=== PATIENT | female | born 1940 | race Caucasian/White ===

== ENCOUNTER 2018-07-15 06:19 | Observation (INO) | payer MEDICARE ==
[2018-07-15] MEDS ORDERED: Adenosine 6 MG/2 ML VIAL ONE ×2 (06:31→06:33)
[2018-07-15] MEDS ORDERED: Fentanyl 100 MCG/2 ML VIAL ONE (06:31)
[2018-07-15 06:52] LABS: #Eosinphils 0.1 thou/uL (0.0-0.7); #Lymphocytes 2.1 thou/uL (1.20-3.40); #Monocytes 0.6 thou/uL (0.11-0.59); #Neutrophils 3.5 thou/uL (1.40-6.50); %Basophils 0.6 % (0.0-1.0); %Eosinophils 1.2 % (0.0-10.0); %Lymphocytes 33.1 % (21.0-51.0); %Monocytes 9.1 % (0.0-10.0); Hemoglobin 13.2 g/dL (12.0-16.0); Mean Corpuscular HGB CONC 33.5 g/dL (32.0-36.0); Mean Corpuscular Hemoglobin 31.3 pg (27.0-31.0); Mean Corpuscular Volume 93.4 fL (78.0-98.0); Mean Platelet Volume 8.5 fL (7.4-10.4); Platelet Count 167 thou/uL (130-400); RBC Distribution Width 13.3 % (11.5-14.5); Red Blood Cell (RBC) Count 4.23 mill/uL (4.20-5.40); White Blood Cell (WBC) Count 6.2 thou/uL (4.8-10.8)
[2018-07-15 07:13] LABS: CKMB 1.1 ng/mL (0-6.6); Troponin I Less than 0.010 ng/mL (< 0.028)
[2018-07-15 07:17] LABS: ALT (SGPT) 32 U/L (8-55); AST (SGOT) 25 U/L (5-34); Albumin 4.5 g/dL (3.4-4.8); Alkaline Phosphatase 62 U/L (40-150); Anion Gap 12 mmol/L (10-20); BUN (Urea Nitrogen) 14 mg/dL (9.8-20.1); Bilirubin, Total 0.7 mg/dL (0.2-1.2); Calc. Creatinine Clearance 0 mL/min (70-130); Calcium 9.7 mg/dL (7.8-10.44); Carbon Dioxide 26 mmol/L (23-31); Chloride 109 mmol/L (98-107); Estimated GFR-MDRD 67; Globulin 2.5 g/dL (2.4-3.5); Glucose 92 mg/dL (83-110); Potassium 3.8 mmol/L (3.5-5.1); Sodium 143 mmol/L (136-145)
[2018-07-15] MEDS ORDERED: Ondansetron HCl/PF 4 MG/2 ML Vial ONE (07:22)
--- NOTE | 2018-07-15 08:17 | RAD ---
SINGLE VIEW OF THE CHEST: COMPARISON: None. HISTORY: Supraventricular tachycardia. FINDINGS: A single view of the chest shows an enlarged cardiomediastinal silhouette with atherosclerotic calcif ications in the aorta. There is no evidence of consolidation, mass, or pleural effusion. IMPRESSION: Cardiomegaly. POS: GAETANO
[2018-07-15] MEDS ORDERED: Digoxin 0.5 MG/2 ML AMP ONE (08:55)
[2018-07-15 09:55] LABS: Troponin I 0.017 ng/mL (< 0.028)
[2018-07-15] MEDS ORDERED: Loperamide HCl 2 MG CAP PO PRN (10:58)
[2018-07-15] MEDS ORDERED: HYDROcodone/Acetaminophen 5/325 mg Tablet PO PRN (10:58)
[2018-07-15] MEDS ORDERED: Metoprolol Tartrate 25 MG TAB PO SCH ×2 (10:58→11:30)
[2018-07-15] MEDS ORDERED: Eucerin (Mineral Oil/Petrolatum,White) 30 gm Jar TOP PRN (10:58)
[2018-07-15] MEDS ORDERED: Chloraseptic Spray 180 ml Bottle PO PRN (10:58)
[2018-07-15] MEDS ORDERED: Nitroglycerin 0.4 MG TAB (25 Tab Bottle) SL PRN (10:58)
[2018-07-15] MEDS ORDERED: Diabetic Tussin 200 MG/10 ML UDCUP PO PRN (10:58)
[2018-07-15] MEDS ORDERED: Milk Of Magnesia 30 ML UDCUP PO PRN (10:58)
[2018-07-15] MEDS ORDERED: Ondansetron ODT 4 MG TAB PO PRN (10:58)
[2018-07-15] MEDS ORDERED: Sodium Chloride 0.65% Nasal 44 ML BOT EA NARE PRN (10:58)
[2018-07-15] MEDS ORDERED: Senokot 8.6 MG TAB PO PRN (10:58)
[2018-07-15] MEDS ORDERED: Artificial Tears 18 DROP/0.9 ML EA EYE PRN (10:58)
[2018-07-15] MEDS ORDERED: Loratadine 10 MG TAB PO PRN (10:58)
[2018-07-15] MEDS ORDERED: Famotidine 20 MG TAB PO SCH ×2 (10:58→11:30)
[2018-07-15] MEDS ORDERED: Enoxaparin Sodium 40 MG/0.4 ML SYRINGE SC SCH (10:58)
[2018-07-15] MEDS ORDERED: Mag-Al 1200 mg/1200 mg/30 ML UDCUP PO PRN (10:58)
[2018-07-15] MEDS ORDERED: Aspirin 325 MG TAB PO SCH ×2 (10:58→11:30)
[2018-07-15] MEDS ORDERED: hydrALAZINE 20 MG/ML VIAL SLOW IVP PRN (10:58)
[2018-07-15] MEDS ORDERED: Ondansetron HCl/PF 4 MG/2 ML Vial IVP PRN (10:58)
[2018-07-15] MEDS ORDERED: Acetaminophen 325 MG TAB PO PRN (10:58)
[2018-07-15] MEDS ORDERED: Zolpidem Tartrate 5 MG TAB PO PRN (10:58)
--- NOTE | 2018-07-15 11:34 | HP ---
PRIMARY CARE PHYSICIAN: [facility] call admission. REASON FOR ADMISSION: Supraventricular tachycardia. HISTORY OF PRESENT ILLNESS: This is a 77-year-old female with no significant medical history, who ca me to emergency room with a complaint of dizziness and palpitations. She was feeling funny. She had EKG done, which showed SVT. She was given 6 mg of adenosine that did not convert her to sinus rhyth m. Patient required DC cardioversion in the emergency room after conscious sedation. The patient wa s given DC shock and she was converted to sinus rhythm. After that, patient also had transient SVT a gain, which converted back to normal rhythm. Patient was given aspirin, digoxin 0.25 mg IV push, and additional dose of adenosine 12 mg prior to that. When I saw, at that time, patient was in sinus rhythm. She was feeling much, much better. She did n ot have any chest pain or syncope. She denies any fever or chills. She denies any similar problem i n the past. She denies any excessive caffeinated product. She denies any orthopnea, PND, or leg swe lling. She denies any thyroid problem. The patient is not taking any medications. REVIEW OF SYSTEMS: The following complete review of systems was negative, unless otherwise mentioned in the HPI or below: Constitutional: Weight loss or gain, ability to conduct usual activities. Sk in: Rash, itching. Eyes: Double vision, pain. ENT/Mouth: Nose bleeding, neck stiffness, pain, te nderness. Cardiovascular: Palpitations, dyspnea on exertion, orthopnea. Respiratory: Shortness of breath, wheezing, cough, hemoptysis, fever, or night sweats. Gastrointestinal: Poor appetite, abdo edwin pain, heartburn, nausea, vomiting, constipation, or diarrhea. Genitourinary: Urgency, frequen cy, dysuria, nocturia. Musculoskeletal: Pain, swelling. Neurologic/Psychiatric: Anxiety, depressi on. Allergy/Immunologic: Skin rash, bleeding tendency. Please see my HPI for pertinent positive an d negative. All other review of systems reviewed and negative except as mentioned in the HPI. PAST MEDICAL HISTORY: Per patient, she does not have any previous medical history. PAST SURGICAL HISTORY: Per patient, she did not have any surgery in the past. PAST PSYCHIATRIC HISTORY: Reviewed and negative. SOCIAL HISTORY: Patient is . She is a former smoker. She quit smoking few years ago. She d enies any alcohol or other illicit drug abuse. FAMILY HISTORY: No strong family history of premature coronary artery disease, stroke, or cancer. ALLERGIES: No known drug allergies. CURRENT HOME MEDICATIONS: The patient is not taking any medication at this point. EMERGENCY ROOM COURSE: The patient was given initially adenosine 6 mg and subsequently 12 mg. The p atient was given IV fluid. Patient was given conscious sedation with fentanyl 50 mcg, etomidate 7 mg , Zofran 4 mg, and subsequently, patient was also given additional dose of digoxin 0.25 mg. PHYSICAL EXAMINATION: VITAL SIGNS: On arrival, blood pressure of 121/86, pulse 171, respiratory rate 24, temperature 98.5, saturation 100% on room air, weight 61.2 kilograms. GENERAL: The patient is currently alert and oriented x3. HEENT: Head: Normocephalic and atraumatic. Eyes: Pupils round and reactive to light. Extraocular muscle intact. ENT: Oropharynx within normal limits. Moist mucous membranes, no oral lesion, no p haryngeal erythema, no exudate. NECK: Supple, no JVD, no thyromegaly, no carotid bruit. LUNGS: Clear to auscultation without any rhonchi or rales. CARDIAC: S1 and S2 regular. No murmur, no gallop, no rub. ABDOMEN: Soft, bowel sounds present, nontender, nondistended. No organomegaly, no mass, no suprapub ic tenderness. BACK EXAMINATION: Unremarkable, no CVA tenderness. EXTREMITIES: Upper extremities, passive movement of all joints are normal. Lower extremities, no ed leti. Good distal pulsation. SKIN: No skin rash. HEMATOLOGICAL SYSTEM: No lymphadenopathy. PSYCHIATRIC: Normal affect. NEUROLOGIC: The patient is alert and oriented x3. Cranial nerves II-XII intact. Motor and sensatio n within normal limits. No focal neurological deficit noted. SIGNIFICANT LABORATORY DATA: 1. EKG showing a supraventricular tachycardia with fusion complex. Repeat EKG shows normal sinus rh ythm, premature atrial complexes. 2. Chest x-ray, based on my review, no acute cardiopulmonary process. 3. CBC: WBC 6.2, hemoglobin 13.2, platelets 167. 4. BMP: Sodium 143, potassium 3.8, chloride 109, carbon dioxide 26, BUN 14, creatinine 0.82, glucos e 92, calcium 9.7. 5. LFT: AST 25, ALT 32, alkaline phosphatase 62, albumin 4.5. 6. Cardiac enzymes negative x2. 7. TSH 3.43. ASSESSMENT AND PLAN: 1. Acute supraventricular tachycardia. Patient required adenosine 6 mg and subsequently 12 mg and s till this has not responded and that is why it required direct current cardioversion. Even after piyush t, the patient had another supraventricular tachycardia, required digoxin. Currently, patient is in sinus rhythm. At this point, the patient will be admitted to telemetry floor. Electrophysiology cale l be consulted. Echocardiography will be obtained. We will continue aspirin 325 mg p.o. daily. We will check lipid profile for risk stratification. Tomorrow, we will monitor on telemetry floor. We will do serial cardiac enzymes x2 to rule out acute coronary syndrome. Further evaluation and treatm ent, we will defer to fugitive investigator. We will start metoprolol 25 mg p.o. b.i.d. 2. Deep venous thrombosis prophylaxis not needed, because we are expecting discharge in 24 hours. 3. Gastrointestinal prophylaxis, Pepcid 20 mg p.o. b.i.d. 4. Code status: The patient is FULL CODE. Patient's is surrogate decision maker. Disposition plan based on clinical course. We are expecting patient's stay in hospital [address] of care discussed with the patient in detail.
[2018-07-15 12:08] VITALS: BMI 23.6
[2018-07-15] MEDS ORDERED: Iopamidol 370 76% 100 ML VIAL ONE (12:42)
[2018-07-15 13:31] LABS: Bilirubin Negative (Negative); Blood, Urine Negative (Negative); Clarity CLEAR (Clear); Glucose, Urine (Dipstick) Negative (Negative); Leukocyte Negative (Negative); Nitrite Negative (Negative); Protein, Urine (Dipstick) Negative (Neg-Trace); Specific Gravity, Urine 1.005 (1.002-1.036); Urobilinogen 0.2 mg/dL (0.2-1.0)
[2018-07-15 13:33] LABS: Bacteria/HPF None Seen HPF (None Seen); Hyaline Casts/LPF 0-3 HYALINE CAST LPF (0-3 Hyaline); Pathc Cast-AUWi Flag 0.14 (0-2.49); RBC/HPF 0-3 HPF (0-3); Squamous Epithelial 0-3 HPF (0-3); WBC/HPF 0-3 HPF (0-3)
[2018-07-15 13:58] LABS: Troponin I 0.012 ng/mL (< 0.028)
[2018-07-15] MEDS ORDERED: Sodium Chloride 0.9% 1,000 ML IV SCH (17:00)
[2018-07-15] MEDS: Famotidine 20 MG TAB PO SCH (19:51)
[2018-07-15] MEDS: Metoprolol Tartrate 25 MG TAB PO SCH (19:51)
[2018-07-15] MEDS: Lorazepam 2 MG/ML VIAL SLOW IVP PRN (21:39)
--- NOTE | 2018-07-16 00:06 | CON ---
DATE OF CONSULTATION: 07/15/2018 ELECTROPHYSIOLOGY CONSULTATION SURINDER Odom dictating for Pelon Jansen M.D. REFERRING PHYSICIAN: Dr. Palma. REASON FOR CONSULTATION: Supraventricular tachycardia. HISTORY OF PRESENT ILLNESS: Ms. Santana is a pleasant elderly woman, in the early stages of demen tia. She is accompanied by her . Her largely acts as a historian. They report that they were at home and Ms. Santana had a sudden onset of shortness of breath. She also had some di zziness and palpitations. They came to the emergency room, and when connected to a telemetry, it mandi wed SVT. She was given 6 mg of adenosine, which was ineffective at restoring a sinus mechanism and t hen was sedated and underwent direct current cardioversion in the emergency room. After one shock, s inus rhythm was restored. She did have a transient episode of SVT following that, which converted ba ck to normal sinus rhythm after receiving digoxin IV and additional 12 mg dose of adenosine. Since t hat time, she has been maintained in sinus rhythm and has not had recurrence of her symptoms. Her an d her both deny any prior episodes of this or any substantial past medical history. They are both very eager for further investigation and hopefully resolution of this issue. They deny any rec ent illnesses, hospitalizations, medication changes, excessive caffeine intake, or thyroid issues. REVIEW OF SYSTEMS: A 12-point review of systems was conducted and is negative except that listed abo ve in the HPI. PAST MEDICAL HISTORY: No prior past medical history per patient and . HOME MEDICATIONS: No home medications. ALLERGIES: No known drug allergies. FAMILY HISTORY: Negative for sudden onset cardiac , stroke, or early onset coronary artery dise ase. SOCIAL HISTORY: , former tobacco habituation, but quit few years ago. Negative for alcohol o r illicit drug use. PHYSICAL EXAMINATION: MOST RECENT VITAL SIGNS: Temperature 98.3 degrees Fahrenheit, pulse 88, blood pressure 154/67, respi rations 17, oxygen is 95% on room air. GENERAL: This is a well-appearing, well-groomed female in no apparent distress. She is alert times person, place, and mostly to situation, though is not completely accurate historian and she does have some confusion about the events leading up to the hospital. HEENT: She is normocephalic and atraumatic. Her sclerae are anicteric. EOMs are intact. NECK: Supple without jugular venous distention. HEART: Rate is regularly regular with a crisp S1 and S2. PMI is nondisplaced. EXTREMITIES: Warm and dry to touch without clubbing, cyanosis, or edema. LUNGS: Clear to auscultation bilaterally without wheezes, crackles, or rhonchi. Respirations are ev en and unlabored with good bilateral excursion. ABDOMINAL EXAM: Benign and hepatojugular reflex is negative. NEUROLOGIC EXAM: Grossly intact and nonfocal, but as mentioned, she is a poor historian and somewhat confused about recent events, which is consistent with her early stages of dementia. Her gait was s table, moving around the room. DATABASE: Hematology was unremarkable. Chemistry, creatinine 0.82, potassium 3.8. TSH 3.43. Echoc ardiogram on 07/15/2018, ejection fraction 55%-60%, moderately enlarged right atrium, mild mitral reg urgitation. Telemetry and EKGs all were reviewed. 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 ASSESSMENT AND PLAN: 1. Supraventricular tachycardia, likely atrioventricular uma reentry tachycardia, now maintaining sinus rhythm after discontinue cardioversion this morning. 2. Preserved left ventricular systolic function 55%-60% by echocardiogram on 07/15/2018. 3. Potential mild dementia. RECOMMENDATIONS: We discussed SVT with Ms. Santana and her . At this point, the recommend ation is to move forward with EP study and SVT ablation tomorrow. We will keep her n.p.o. after midn ight. Risks included with EP study and ablation include hematoma at the access site, damage to the v eins, damage to the heart, arrhythmias, perforation of the heart, and possible need for chest tube in sertion. The patient voices understanding and her voices understanding. They both agree wit h the plan of care and are eager to move forward for resolution of this issue. Thank you for allowing us to participate in the care of this patient. We will continue to follow and see her tomorrow for her study and ablation.
[2018-07-16] MEDS: Lorazepam 2 MG/ML VIAL SLOW IVP PRN (02:10)
[2018-07-16 04:56] LABS: #Eosinphils 0.2 thou/uL (0.0-0.7); #Lymphocytes 2.1 thou/uL (1.20-3.40); #Monocytes 0.4 thou/uL (0.11-0.59); #Neutrophils 3.3 thou/uL (1.40-6.50); %Basophils 0.7 % (0.0-1.0); %Lymphocytes 34.2 % (21.0-51.0); Hemoglobin 11.2 g/dL (12.0-16.0); Mean Corpuscular HGB CONC 34.4 g/dL (32.0-36.0); Mean Corpuscular Hemoglobin 32.1 pg (27.0-31.0); Mean Corpuscular Volume 93.5 fL (78.0-98.0); Platelet Count 133 thou/uL (130-400)
[2018-07-16 05:17] LABS: Anion Gap 12 mmol/L (10-20); BUN (Urea Nitrogen) 9 mg/dL (9.8-20.1); Calc. Creatinine Clearance 62 mL/min (70-130); Calcium 8.9 mg/dL (7.8-10.44); Carbon Dioxide 22 mmol/L (23-31); Cardiac Risk 2.3 (Less than 4.5); Chloride 111 mmol/L (98-107); Cholesterol 166 mg/dl (< 200 Desired); Estimated GFR-MDRD 77; Glucose 95 mg/dL (83-110); HDL Cholesterol 72 mg/dL (>60 Neg Risk); LDL Cholesterol, Calculated 81 mg/dL; Potassium 3.5 mmol/L (3.5-5.1); Sodium 141 mmol/L (136-145); Triglycerides 65 mg/dL (Less than 150)
[2018-07-16] MEDS ORDERED: PROPOFOL 200 MG/20 ML VIAL ONE (10:03)
[2018-07-16] MEDS: Aspirin 325 MG TAB PO SCH (10:18)
[2018-07-16] MEDS: Famotidine 20 MG TAB PO SCH ×2 (10:19→20:42)
[2018-07-16] MEDS: Metoprolol Tartrate 25 MG TAB PO SCH ×2 (10:19→21:52)
--- NOTE | 2018-07-16 11:54 | DIS ---
DATE OF ADMISSION: 07/15/2018 DATE OF DISCHARGE: 07/16/2018 PRIMARY CARE PHYSICIAN: [facility] call admission. DISCHARGE DISPOSITION: Home. PRIMARY DISCHARGE DIAGNOSIS: Supraventricular tachycardia. SECONDARY DISCHARGE DIAGNOSES: Normocytic-normochromic anemia and Alzheimer's dementia. PRIMARY PROCEDURE/OPERATION: SVT ablation. RADIOLOGICAL INVESTIGATION: Echocardiography showed normal EF, diastolic dysfunction. Chest x-ray n ormal. SIGNIFICANT LABORATORY DATA: WBC 6.0, hemoglobin 11.2, platelets 133. Sodium 141, potassium 3.5, BU N 9, creatinine 0.73, calcium 8.9, magnesium 2.0. LFT normal. Cardiac enzymes negative x3. LDL 81. TSH 3.43. Triglycerides 65, total cholesterol 166, HDL 72. Urinalysis normal. DISCHARGE MEDICATIONS: Namenda 10 mg p.o. daily, metoprolol 25 mg p.o. b.i.d., aspirin 81 mg p.o. da nancy. CONTRAINDICATIONS: None. CODE STATUS: FULL CODE. INPATIENT CONSULTANTS: Dr. Jansen, eye dropper assembler, was consulted while in hospital, who did elect rophysiologic study. TEST RESULTS PENDING ON DISCHARGE: None. ALLERGIES: No known drug allergy. DISCHARGE PLAN: Post hospital, the patient will follow up with Dr. Jansen as instructed. The patient will make appointment with primary care physician. HOSPITAL COURSE: This is a 77-year-old female, who was admitted for acute SVT. In the emergency buddy m, patient was given adenosine 6 mg and subsequently required 12 mg of adenosine. Even after that, t he patient remained in SVT, required DC cardioversion. Subsequently, she converted to sinus rhythm, but she had momentarily recurrence of SVT and that is why she was given digoxin in the emergency room and she was admitted to telemetry floor as observation status. Flight Control Manager was consulted an d they decided to do ablation procedure for SVT. Echocardiography showed diastolic dysfunction. Her chest x-ray was normal. Her routine blood test while in hospital was unremarkable including cardiac enzyme that is negative. The patient was planned for electrophysiologic study by Dr. Jansen later on today, and if that procedure is done and if eye dropper assembler okay, then we will consider dischargi ng this patient to home. During night time, while in hospital, the patient had sundowning and she required restraint and sitte r, but this morning, the patient was calm and she was no longer requiring any restraint. PHYSICAL EXAMINATION: The patient is seen and examined at bedside today. VITAL SIGNS: Currently, temperature 97.5, pulse 66, respiratory rate 16, saturation 94% on room air, blood pressure 157/72, weight 134 pounds. GENERAL: The patient is currently alert, awake, in no obvious acute distress. HEAD: Normocephalic, atraumatic. EYES: Pupils round, reactive to light. Extraocular muscle intact. ENT: Oropharynx within normal limits. Moist mucous membranes, no oral lesion, no pharyngeal erythem a, no exudate. NECK: Supple, no JVD, no thyromegaly, no carotid bruit. No jugular venous distention. LUNGS: Clear to auscultation without any rhonchi or rales. CARDIAC: S1 and S2 regular without any murmur. ABDOMEN: Soft and benign without any tenderness. EXTREMITIES: No edema. NEUROLOGIC: Nonfocal examination. Overall, patient is medically stable for discharge today.
--- NOTE | 2018-07-16 11:57 | PDOC.PN ---
- Subjective Encounter Start Date: 07/16/18 Encounter Start Time: 07:50 -: old records requested/rev Patient seen and examined. No new complaints. pt was agitated last night - Objective Resuscitation Status: Resuscitation Status FULL:Full Resuscitation MAR Reviewed: Yes Vital Signs & Weight: Vital Signs (12 hours) Temp Pulse Resp BP Pulse Ox 07/16/18 04:40 97.5 F L 66 16 157/72 H 94 L Weight Weight 134 lb 12.8 oz I&O: 07/15/18 07/16/18 07/17/18 06:59 06:59 06:59 Intake Total 100 Output Total 900 Balance -800 Result Diagrams: 07/16/18 04:44 07/16/18 04:44 Radiology Reviewed by me: Yes (echo reviewed) EKG Reviewed by me: Yes Phys Exam - Physical Examination Constitutional: NAD HEENT: PERRLA, moist MMs, sclera anicteric Neck: no JVD, supple Respiratory: no wheezing, no rales, no rhonchi Cardiovascular: RRR, no significant murmur, no rub Gastrointestinal: soft, non-tender, no distention, positive bowel sounds Musculoskeletal: no edema, pulses present Neurological: non-focal, normal sensation Lymphatic: no nodes Psychiatric: normal affect Skin: no rash, normal turgor Dx/Plan (1) SVT (supraventricular tachycardia) Code(s): I47.1 - SUPRAVENTRICULAR TACHYCARDIA Status: Acute (2) Alzheimer's dementia Code(s): G30.9 - ALZHEIMER'S DISEASE, UNSPECIFIED; F02.80 - DEMENTIA IN OTH DISEASES CLASSD ELSWHR W/O BEHAVRL DISTURB Status: Chronic (3) Anemia, normocytic normochromic Code(s): D64.9 - ANEMIA, UNSPECIFIED Status: Chronic - Plan cont current plan of care * today plan for SVT ablation procedure * after that if stable and if EP OK, will discharge to home * medication reviewed as below * symptomatic treatment. Review of Systems - Review of Systems Eyes: negative: Pain, Vision Change, Conjunctivae Inflammation, Eyelid Inflammation, Redness, Other ENT: negative: Ear Pain, Ear Discharge, Nose Pain, Nose Discharge, Nose Congestion, Mouth Pain, Mouth Swelling, Throat Pain, Throat Swelling, Other Respiratory: negative: Cough, Dry, Shortness of Breath, Hemoptysis, SOB with Excertion, Pleuritic Pain, Sputum, Wheezing Cardiovascular: negative: chest pain, palpitations, orthopnea, paroxysmal nocturnal dyspnea, edema, light headedness, other Gastrointestinal: negative: Nausea, Vomiting, Abdominal Pain, Diarrhea, Constipation, Melena, Hematochezia, Other Genitourinary: negative: Dysuria, Frequency, Incontinence, Hematuria, Retention , Other Musculoskeletal: negative: Neck Pain, Shoulder Pain, Arm Pain, Back Pain, Hand Pain, Leg Pain, Foot Pain, Other Other: not reliable due to dementia - Medications/Allergies Allergies/Adverse Reactions: Allergies Allergy/AdvReac Type Severity Reaction Status Date / Time No Known Allergies Allergy Verified 07/15/18 11:12 Medications: Current Medications Acetaminophen (Tylenol) 650 mg PO Q4H PRN PRN Reason: Headache/Fever or Pain Al Hydroxide/Mg Hydroxide (Maalox) 30 ml PO Q6H PRN PRN Reason: Heartburn or Indigestion Artificial Tears (Tears Naturale) 0 drop EA EYE PRN PRN PRN Reason: Dry Eyes Aspirin (Aspirin) 325 mg PO DAILY [facility] Last Admin: 07/16/18 10:18 Dose: 325 mg Famotidine (Pepcid) 20 mg PO BID [facility] Last Admin: 07/16/18 10:19 Dose: 20 mg Guaifenesin (Robitussin Sf) 200 mg PO Q4H PRN PRN Reason: Cough Hydralazine HCl (Apresoline) 10 mg SLOW IVP Q4H PRN PRN Reason: Systolic BP > 180 Loperamide HCl (Imodium) 2 mg PO PRN PRN PRN Reason: Diarrhea/Loose Stools Loratadine (Claritin) 10 mg PO DAILYPRN PRN PRN Reason: Sinus Symptoms Magnesium Hydroxide (Milk Of Magnesium) 30 ml PO DAILYPRN PRN PRN Reason: Constipation Metoprolol Tartrate (Lopressor) 25 mg PO BID [facility] Last Admin: 07/16/18 10:19 Dose: 25 mg Mineral Oil/White Petrolatum (Eucerin Cream) 0 gm TOP BIDPRN PRN PRN Reason: Dry Skin Nitroglycerin (Nitrostat) 0.4 mg SL Q5MIN PRN PRN Reason: Chest Pain Ondansetron HCl (Zofran Odt) 4 mg PO Q6H PRN PRN Reason: Nausea/Vomiting Ondansetron HCl (Zofran) 4 mg IVP Q6H PRN PRN Reason: Nausea/Vomiting Phenol (Chloraseptic [place] 180 Ml Bot) 0 ml PO PRN PRN PRN Reason: Sore Throat Senna (Senokot) 2 tab PO HSPRN PRN PRN Reason: Constipation Sodium Chloride (Hollins Nasal [place] 0.65%) 0 ml EA NARE QIDPRN PRN PRN Reason: Nasal Congestion
[2018-07-16] MEDS ORDERED: Lorazepam 2 MG/ML VIAL ONE (12:17)
[2018-07-16] MEDS ORDERED: Lorazepam 2 MG/ML VIAL SLOW IVP PRN (12:24)
[2018-07-16] MEDS ORDERED: Heparin 10,000 UNITS/1 ML VIAL ONE (14:42)
[2018-07-16] MEDS ORDERED: Midazolam HCl 2 mg/2 ml Vial ONE ×2 (15:07→16:24)
[2018-07-16] MEDS ORDERED: Fentanyl 100 MCG/2 ML VIAL ONE ×2 (15:12→16:23)
[2018-07-16] MEDS ORDERED: Isoproterenol 0.2 MG/1 ML AMP ONE (15:52)
[2018-07-16] MEDS ORDERED: Propofol 500 MG/50 ML VIAL ONE (16:14)
[2018-07-16] MEDS ORDERED: PHENYLEPHRINE-NS 100 MCG/ML 10 ML SYRINGE ONE (16:14)
[2018-07-16] MEDS ORDERED: Ondansetron HCl/PF 4 MG/2 ML Vial IVP PRN (17:12)
[2018-07-16] MEDS ORDERED: Promethazine HCl 25 MG/ML VIAL IM PRN (17:12)
[2018-07-16] MEDS ORDERED: Promethazine HCl 25 MG/ML VIAL SLOW IVP PRN (17:12)
[2018-07-17 04:31] VITALS: BP 141/60; TEMP 98.5
[2018-07-17] MEDS: Aspirin 325 MG TAB PO SCH (09:09)
[2018-07-17] MEDS: Famotidine 20 MG TAB PO SCH (09:09)
[2018-07-17] MEDS: Metoprolol Tartrate 25 MG TAB PO SCH (09:10)
--- NOTE | 2018-07-17 09:19 | OP ---
REFERRING PHYSICIAN: Annie Palma M.D. HISTORY: Mrs. Santana is a 77-year-old woman who presented with an SVT, which did not termiante with adenosine injections, required cardioversion. She is her here for EP study and possible ablation. PROCEDURE: The patient received deep sedation by Anesthesia specialist. After adequate sedation achieved, the left and right femoral vein was accessed with ultrasound guidance. A 6 and 8 [place] short sheath was introduced in the left femoral vein through which a decapolar and octapolar catheter was advanced to the CS right ventricle, His bundle and right atrial positions. Pacing, mapping and recording was performed in each location. An 8-[place]oz[place] short sheath was introduced in the right femoral vein as well. PROCEDURE RESULTS: Baseline cycle length sinus rhythm 80 milliseconds, LA 255, QRS 71, QT 446, AH 210, HV 50 milliseconds. AV Wenckebach cycle was 370 milliseconds. RVWBB is 380 milliseconds is seen. The concentric retrograde VA conduction was seen. Dual AV uma physiology was not demonstrated with an atrial extrastimuli. The AV uma ERP was 600/280 milliseconds. Burst atrial pacing at baseline did not induce sustained arrhythmias, nonsustained atrial flutter was seen only. Following that, isuprel was administered at 4 mcg. Isuprel has eventually increased the heart rate. Burst atrial pacing induced a variety of atrial arrhythmias, atrial flutter was seen which was not convincingly right atrial isthmus-dependent. multiple cycle lengths were seen 280 milliseconds, 300 milliseconds were all noted. Overdrive pace mapping did not demonstrate typical right atrial isthmus dependent atrial flutter. No AV node reentry tachycardia was induced. Burst atrial maneuver induced a rapid atrial flutter at 280 milliseconds which on occasion to convert to atrial fibrillation. Multi-circuit left and right atrial arrhythmias are induced. The sinus node recovery time was corrected 200 milliseconds. After atrial fibrillation/left atrial flutter were induced, cardioversion was required to restore sinus rhythm to be maintained until the end of the procedure. CONCLUSION: 1. No evidence of dual AV uma or accessory pathways present. 2. Borderline normal sinus uma function. 3. Normal AV uma function. 4. Inducible multi-circuit atrial arrhythmias are present. PLAN: At this point, we will opt for medical management with AV uma blocking agents like diltiazem versus beta blockers initially. Antiarrhythmic agents like Multaq is also a consideration. Monitor for sinus node dysfunction in the future and consider pacing at present. Pulmonary venous isolation procedure could be a consideration, although due to the patient's advanced dementia, he is likely to be less preferred option. ERWIN
--- NOTE | 2018-07-17 10:02 | PDOC.PN ---
- Subjective Encounter Start Date: 07/17/18 Encounter Start Time: 07:30 Patient seen and examined. No new complaints. No overnight events - Objective Resuscitation Status: Resuscitation Status FULL:Full Resuscitation MAR Reviewed: Yes Vital Signs & Weight: Vital Signs (12 hours) Temp Pulse Resp BP Pulse Ox 07/17/18 07:53 98.5 F 60 14 07/17/18 04:29 98.5 F 60 14 141/60 H 93 L Weight Weight 132 lb 1.6 oz I&O: 07/16/18 07/17/18 07/18/18 06:59 06:59 06:59 Intake Total 100 400 Output Total 900 0 Balance -800 400 Result Diagrams: 07/16/18 04:44 07/16/18 04:44 EKG Reviewed by me: Yes Phys Exam - Physical Examination Constitutional: NAD HEENT: PERRLA, moist MMs, sclera anicteric Neck: no JVD, supple Respiratory: no wheezing, no rales, no rhonchi Cardiovascular: RRR, no significant murmur, no rub Gastrointestinal: soft, non-tender, no distention, positive bowel sounds Musculoskeletal: no edema, pulses present Neurological: non-focal, normal sensation, moves all 4 limbs Lymphatic: no nodes Psychiatric: normal affect Skin: no rash, normal turgor Dx/Plan (1) SVT (supraventricular tachycardia) Code(s): I47.1 - SUPRAVENTRICULAR TACHYCARDIA Status: Acute (2) Alzheimer's dementia Code(s): G30.9 - ALZHEIMER'S DISEASE, UNSPECIFIED; F02.80 - DEMENTIA IN OTH DISEASES CLASSD ELSWHR W/O BEHAVRL DISTURB Status: Chronic (3) Anemia, normocytic normochromic Code(s): D64.9 - ANEMIA, UNSPECIFIED Status: Chronic - Plan cont current plan of care, plan discussed w/ family * medication reviewed as below * symptomatic treatment * stable for discharge * see discharge quinton. Review of Systems - Review of Systems Other: not reliable due to dementia - Medications/Allergies Allergies/Adverse Reactions: Allergies Allergy/AdvReac Type Severity Reaction Status Date / Time No Known Allergies Allergy Verified 07/15/18 11:12
--- NOTE | 2018-07-17 12:10 | ADD-DIS ---
ADDENDUM: The patient was planned for discharge yesterday after ablation procedure, but we observed her 24 hour s in hospital after procedure as per Dr. Jansen. Patient had successful radiofrequency ablation for at rial flutter. We are giving her metoprolol upon discharge. The patient is seen and examined at [facility] today. Please see my progress note from today for further detail. This patient has underlying d ementia and has every day owning in the evening time. I spoke with the patient's son and updated about patient's plan and diagnosis and treatment.
--- NOTE | 2018-07-17 17:41 | PDOC.CTH ---
Cardiology Progress Note - Subjective EP progress note: Patient remains confused and somewhat agitated. Up walking in room. Feels well overall. Unable to get ROS with her current mental state - Objective Vital Signs Temp Pulse Resp 07/17/18 07:53 98.5 F 60 14 Weight 132 lb 1.6 oz 07/16/18 07/17/18 07/18/18 06:59 06:59 06:59 Intake Total 100 400 Output Total 900 0 Balance -800 400 - Physical Examination General/Neuro: NAD Neck: carotid US brisk, no JVD present Lungs: unlabored respirations Heart: PMI normal, RRR Abdomen: NT/ND, soft - Telemetry Telemetry Rhythm: NSR - Labs Result Diagrams: 07/16/18 04:44 07/16/18 04:44 Troponin/CKMB CK-MB (CK-2) 1.1 ng/mL (0-6.6) 07/15/18 06:33 Troponin I 0.012 ng/mL (< 0.028) 07/15/18 13:12 - Assessment/Plan 1. EPS on 07.16.18 found multiple left atrial circuits. Proceed with medical management with AV uma agents and progressing to multaq if needed. Poor candidate for PVAI 2. CHADS2 VASC: 3 (age, female gender) OAC is indicated though questionable with her advanced dementia. High risk for bleeding complications/poor medical compliance. 3. Advanced dementia 4. Borderline sinus node dysfunction, monitor for symptomatic bradycardia, consider pacemaker if seen.
--- NOTE | 2018-07-18 15:12 | EKG ---
Test Reason : Blood Pressure : / mmHG Vent. Rate : 052 BPM Atrial Rate : 052 BPM P-R Int : 146 ms QRS Dur : 070 ms QT Int : 464 ms P-R-T Axes : 080 046 055 degrees QTc Int : 431 ms Sinus bradycardia Low voltage QRS Borderline ECG Confirmed by KOSTA VIRGEN MD ([id number]) on 07/18/2018 3:12:00 PM Referred By: [facility] Confirmed By:KOSTA VIRGEN MD
--- NOTE | 2018-07-19 17:26 | EKG ---
Test Reason : Blood Pressure : / mmHG Vent. Rate : 175 BPM Atrial Rate : 175 BPM P-R Int : 000 ms QRS Dur : 078 ms QT Int : 260 ms P-R-T Axes : 000 034 037 degrees QTc Int : 443 ms Supraventricular tachycardia with Fusion complexes Low voltage QRS Cannot rule out Inferior infarct , age undetermined No STEMI Abnormal ECG Confirmed by ROULA Kennedy, LEONOR ([id number]), editor publications TAMIA PAZ ([id number]) on 07/19/2018 5:26:07 PM Referred By: Confirmed By:LEONOR CELESTE M.D.
--- NOTE | 2018-07-19 17:27 | EKG ---
Test Reason : POST CARDIOVERSION Blood Pressure : / mmHG Vent. Rate : 078 BPM Atrial Rate : 078 BPM P-R Int : 154 ms QRS Dur : 096 ms QT Int : 408 ms P-R-T Axes : 074 025 037 degrees QTc Int : 465 ms Normal sinus rhythm with Premature atrial complexes Low voltage QRS No STEMI Borderline ECG Confirmed by LEONOR CELESTE M.D. ([id number]), editor sound TAMIA PAZ ([id number]) on 07/19/2018 5:26:58 PM Referred By: Confirmed By:LEONOR CELESTE M.D.
== END 2018-07-17 09:33 | disposition home or self-care (01) ==
LOC: ERS 06:19 → EDBD 06:19 → 2SW 10:52
PROVIDERS: ADMIT Internal Medicine; ATTEND Internal Medicine
PROC: 4A023FZ Measurement of Cardiac Rhythm, Percutaneous Approach (ICD-10-PCS; principal; 2018-07-17)
DX: I47.1 Supraventricular tachycardia (principal); I48.92 Unspecified atrial flutter; D64.9 Anemia, unspecified; G30.9 Alzheimer's disease, unspecified; F02.80 Dementia in other diseases classified elsewhere, unspecified severity, without behavioral disturbance, psychotic disturbance, mood disturbance, and anxiety; Z87.891 Personal history of nicotine dependence; Z79.899 Other long term (current) drug therapy
CPT/HCPCS: 71045; 76942; 80048; 80061; 81001; 82553; 83735; 84484 ×2; 85025; 92960 ×2; 93005 ×2; 93306; 93620; 93623; 94760; 96361; 96374; 96375 ×2; 96376; 99152; 99285; C1730; C1769; G0378 ×2; 36415; 80053; 84443; A4216; J0153; J1160; J1644; J2060; J2250; J2405; J2704; J3010

== ENCOUNTER 2018-07-31 03:56 | Inpatient (IN) | payer MEDICARE ==
[2018-07-31] MEDS ORDERED: Adenosine 6 MG/2 ML VIAL ONE (04:24)
[2018-07-31 04:27] LABS: #Lymphocytes 1.1 thou/uL (1.20-3.40); #Monocytes 0.2 thou/uL (0.11-0.59); #Neutrophils 6.9 thou/uL (1.40-6.50); %Basophils 0.3 % (0.0-1.0); %Eosinophils 0.2 % (0.0-10.0); %Lymphocytes 13.7 % (21.0-51.0); %Monocytes 2.7 % (0.0-10.0); %Neutrophils 83.1 % (42.0-75.0); Hemoglobin 12.5 g/dL (12.0-16.0); Mean Corpuscular HGB CONC 33.6 g/dL (32.0-36.0); Mean Corpuscular Hemoglobin 32.1 pg (27.0-31.0); Mean Corpuscular Volume 95.3 fL (78.0-98.0); Mean Platelet Volume 9.1 fL (7.4-10.4); Platelet Count 178 thou/uL (130-400); RBC Distribution Width 13.1 % (11.5-14.5); Red Blood Cell (RBC) Count 3.88 mill/uL (4.20-5.40); White Blood Cell (WBC) Count 8.3 thou/uL (4.8-10.8)
[2018-07-31] MEDS ORDERED: Fentanyl 100 MCG/2 ML VIAL ONE (04:34)
[2018-07-31] MEDS ORDERED: Midazolam HCl 5 mg/ml Vial ONE (04:34)
[2018-07-31 04:45] LABS: ALT (SGPT) 50 U/L (8-55); AST (SGOT) 34 U/L (5-34); Alkaline Phosphatase 59 U/L (40-150); Anion Gap 13 mmol/L (10-20); BUN (Urea Nitrogen) 27 mg/dL (9.8-20.1); Bilirubin, Total 0.7 mg/dL (0.2-1.2); Calc. Creatinine Clearance 0 mL/min (70-130); Calcium 9.2 mg/dL (7.8-10.44); Carbon Dioxide 21 mmol/L (23-31); Chloride 109 mmol/L (98-107); Estimated GFR-MDRD 58; Globulin 2.4 g/dL (2.4-3.5); Glucose 159 mg/dL (83-110); Potassium 4.2 mmol/L (3.5-5.1); Protein, Total 6.4 g/dL (6.0-8.3); Sodium 139 mmol/L (136-145)
[2018-07-31 04:59] LABS: CKMB 2.1 ng/mL (0-6.6); Troponin I 0.049 ng/mL (< 0.028)
[2018-07-31] MEDS ORDERED: Acetaminophen 325 MG TAB PO PRN (07:52)
[2018-07-31] MEDS ORDERED: Lorazepam 2 MG/ML VIAL SLOW IVP PRN ×2 (07:55→15:09)
[2018-07-31] MEDS: Aspirin 81 mg Enteric Coated Tablet PO SCH (08:53)
[2018-07-31] MEDS ORDERED: Metoprolol Tartrate 25 MG TAB PO SCH (09:00)
[2018-07-31 09:49] LABS: Troponin I 0.263 ng/mL (< 0.028)
--- NOTE | 2018-07-31 10:04 | RAD ---
CHEST 1 VIEW: Date: 07/31/18 HISTORY: Tachycardia. Chest pain. COMPARISON: 07/15/18. FINDINGS: Increased peripheral and interstitial markings in the lung bases. Heart size mildly enlarged. Lungs a re hyperinflated. There is no acute osseous abnormality. Dense calcifications of the transverse aorta . IMPRESSION: 1. Mild pulmonary edema. 2. Cardiomegaly. 3. Obstructive pulmonary disease. POS: [facility]
[2018-07-31 12:17] LABS: Troponin I 0.294 ng/mL (< 0.028)
[2018-07-31] MEDS ORDERED: OLANZapine 10 MG VIAL IM PRN (15:09)
--- NOTE | 2018-07-31 15:55 | HP ---
DATE OF ADMISSION: 07/31/2018 ADMITTING PHYSICIAN: Luke Gutiérrez M.D. HISTORY OF PRESENT ILLNESS: The patient is a 77-year-old female with known history of dementia, who presented to the emergency room complaining of a rapid heart rate. The patient has a known history o f SVT, most recently hospitalized in the Hospitalist Service 07/15/2018. She was seen and evaluated in the emergency room. She was spontaneously converted to normal sinus rhythm. She has a known hist ory of SVT. She was hospitalized approximately 2 weeks ago for this. I have actually seen her in [facility] in my office. She is currently maintained on metoprolol 12.5 mg b.i.d. The patient has a [facility] history of dementia, thus her history is not fully reliable. Her son is out of town. Her is not with her at this time. She denies any chest pain or shortness of breath associated with this . She did note she had a rapid heart rate. It is documented in the emergency room that she had SVT by EKG. Otherwise, at this time, she is feeling well. ALLERGIES: She has no known allergies. CURRENT MEDICATIONS: Documented in the chart. PAST MEDICAL HISTORY: Positive for dementia. REVIEW OF SYSTEMS: Could not be obtained. PHYSICAL EXAMINATION: VITAL SIGNS: Her temperature is 96.7, pulse 58 and regular, respirations 14, O2 sat 96, BP 122/58. GENERAL: She is alert, active, in no acute distress. HEENT: Normocephalic, atraumatic. Sclerae and conjunctivae are clear. Throat clear. NECK: Supple, full range of motion, no masses. LUNGS: Clear. HEART: Reveals a regular rate and rhythm without murmur, gallops or rubs. ABDOMEN: Soft, nontender. Bowel sounds are present and active. There is no hepatosplenomegaly note d. There is no evidence of any rebound or guarding otherwise noted at this time. LABORATORY DATA: Her hemoglobin is 12.5, hematocrit 37.0. Electrolytes, sodium 139, potassium 4.2, chloride 109, CO2 21, BUN 27, creatinine 0.93. It is noted her troponins were slightly elevated at 0 .049 and 0.263. Chest x-ray is otherwise clear. IMPRESSION: 1. Supraventricular tachycardia. 2. Dementia. 3. Mildly elevated troponin. PLAN: 1. The patient has been admitted metoprolol [address] Jansen will be consulted to see the patient. 3. We will also have a regular Cardiology nurse come by and see the patient due to elevated troponin s. 4. I have spoken with her son. I thought she might be a good candidate to go home tomorrow as long as her troponins do not worsen.
[2018-07-31] MEDS: Dronedarone HCl 400 MG TAB PO SCH (17:21)
--- NOTE | 2018-07-31 18:19 | PRG ---
DATE OF SERVICE: 07/31/2018 This is an electrophysiology followup note. REFERRING PHYSICIANS: Cathryn Canas MD and Luke Gutiérrez MD I am seeing Ms. Santana at our [facility] Telemetry Floor as a followup. HISTORY OF PRESENT ILLNESS: I saw this lady about 2 weeks ago when she was here with palpitations. She was noted to have a narrow-complex SVT, which on EP study deemed to be left atrial tachycardia. Multi-circuit left atrial arrhythmias were present. At this point, we opted for medical management, answered advanced dementia. She is here with recurrent palpitations. She was documented to be in an SVT in the ER. She was note d to have mildly elevated troponins and Dr. Canas was consulted as well. Currently, she is asymptom atic, back in sinus rhythm. No dizziness, loss of consciousness. No stroke-like symptoms. No neuro logical deficits. No fever, chills, or cough. REVIEW OF SYSTEMS: Rest of 12-point system is otherwise unremarkable. PAST MEDICAL HISTORY: As above. REVIEW OF SYSTEMS: Otherwise negative. SOCIAL HISTORY: Not changed. Refer to my original dictation. FAMILY HISTORY: Not changed. Refer to my original dictation. OBJECTIVE: VITAL SIGNS: Blood pressure is 138/63, heart rate 57, respirations 20, temperature 97.5 degrees Fahr enheit. GENERAL: Alert and oriented woman in no apparent distress. NECK: Supple. Jugular veins are not distended. CHEST: Coarse. No crackles. CARDIOVASCULAR: Heart sounds are regular to rate and rhythm. No murmur or gallop. ABDOMEN: Benign. Bowel sounds positive. EXTREMITIES: Lower extremities without edema, clubbing, or cyanosis. DATABASE: EKG reveals initially a narrow-complex SVT, likely atrial tachycardia with rates of about 150 beats per minute. LABORATORY DATA: Reviewed revealing white count is 8.3, hemoglobin 12.5, platelet count is 178. Sod ium 139, potassium 4.2, BUN is 27, creatinine 0.93. Cardiac enzymes at 0.049, 0.263, and 0.294. BNP is 2563. ASSESSMENT AND PLAN: Ms. Santana is a pleasant 77-year-old woman with a prior history of dementia and atrial arrhythmias. She has preserved LV function. We attempted medical management with metopr olol, but she has recurrences. We will add Multaq to the regimen at this time. I have to see her ba ck as an outpatient. I discussed the case with Dr. Gutiérrez as well as Dr. Canas.
--- NOTE | 2018-07-31 22:24 | CON ---
DATE OF CONSULTATION: 07/31/2018 REASON FOR CONSULTATION: Recurrent tachycardia. HISTORY OF PRESENT ILLNESS: Mr. Santana is a 77-year-old woman with history of supraventricular t achycardia with recurrent tachycardia. Ms. Santana recently was admitted to the hospital with very rapid heart rates. She went to the el ectrophysiologic laboratory. She was found to have no evidence of dual AV uma pathways or typical right atrial flutter. It was decided that she probably had some ectopic atrial tachycardia or possib ly left-sided flutter. She was given metoprolol; however, she came back in with rapid heart rates. In the emergency room, she was given adenosine with no effect and required cardioversion. The patien t has been admitted for further evaluation. PAST MEDICAL HISTORY: She has severe dementia. She has a very supportive . ALLERGIES: None. MEDICATIONS: Documented in the chart. REVIEW OF SYSTEMS: Not obtainable. PHYSICAL EXAMINATION: GENERAL: This is a pleasant 77-year-old woman. She looks younger than her chronologic age. VITAL SIGNS: Blood pressure 138/63, pulse 57. LUNGS: Clear. CARDIAC: Normal S1, normal S2. ABDOMEN: Soft, nontender. EXTREMITIES: No clubbing or cyanosis. There is no edema. SKIN: Warm and dry. PSYCHIATRIC: She is confused, but orients easily and she is very calm with her being present in the room. SKIN: Warm and dry. LABORATORY AND X-RAY FINDINGS: The patient's troponin level peak was 0.294. The peak BNP is 563. T here was no ST depression when the patient was tachycardic. ASSESSMENT: 1. Recurrent supraventricular tachycardia, very rapid, associated with slight increased troponin lev els, likely demand ischemia. 2. Recently had normal left ventricular function on echocardiography with an ejection fraction of 55 %-60%. PLAN: 1. Discussed with Dr. Jansen. He recommends Multaq 400 mg twice a day. 2. If she has recurrence, stress testing could be done and if that is normal, consideration for flemansoor sorensen I suspect could be given. The high BNP may be related to the severe tachycardia with increase d atrial pressures during the tachycardia. The patient did not appear to be in congestive heart fail ure on the chest x-ray. Start Multaq tonight, home tomorrow if doing well.
[2018-08-01 01:04] VITALS: BMI 21.5
[2018-08-01] MEDS: Dronedarone HCl 400 MG TAB PO SCH (08:05)
[2018-08-01] MEDS: Aspirin 81 mg Enteric Coated Tablet PO SCH (08:05)
[2018-08-01 08:17] VITALS: TEMP 97.8
--- NOTE | 2018-08-01 11:26 | PDOC.CTH ---
Cardiology Progress Note - Subjective EP progress note: Patient seen and evaluated. Baseline dementia. No apparent distress. No complaints today - Objective Vital Signs Temp Pulse Resp BP Pulse Ox 08/01/18 08:05 97.8 F 66 16 94 L 08/01/18 08:00 97.8 F 66 16 156/86 H 94 L 08/01/18 04:17 98.6 F 55 L 16 116/63 96 07/31/18 23:50 97.5 F L 63 18 107/56 L 94 L Weight 137 lb 12.8 oz 07/31/18 08/01/18 08/02/18 06:59 06:59 06:59 Intake Total 600 Balance 600 - Physical Examination General/Neuro: NAD Neck: carotid US brisk, no JVD present Lungs: unlabored respirations Heart: PMI normal, RRR Abdomen: NT/ND, soft - Telemetry Telemetry Rhythm: NSR - Labs Result Diagrams: 07/31/18 04:11 07/31/18 04:11 Troponin/CKMB CK-MB (CK-2) 2.1 ng/mL (0-6.6) 07/31/18 04:11 Troponin I 0.294 ng/mL (< 0.028) H 07/31/18 11:44 - Assessment/Plan 1. Atrial tachycardia with occasional rapid rates. Recent DCCV. Not adequately controlled with rate control. Started multaq for arrhytmia suppression. Rates/ rhythm stable over HS. Continue current rx management 2. Dementia 3. Bradycardia secondary to AV uma blocking therapy. Not true sinus node dysfunction and asymptomatic.
[2018-08-01 12:08] VITALS: BP 136/61
--- NOTE | 2018-08-01 13:04 | PRG ---
DATE OF SERVICE: 08/01/2018 Ms. Santana is doing well. She remained out of SVT. She is now on Multaq 40 mg p.o. b.i.d., whic h she is tolerating well. Cardiology has signed off the case that she can go home. We will be disch arging her today.
--- NOTE | 2018-08-02 20:13 | EKG ---
Test Reason : TACHY Blood Pressure : / mmHG Vent. Rate : 143 BPM Atrial Rate : 025 BPM P-R Int : 000 ms QRS Dur : 082 ms QT Int : 308 ms P-R-T Axes : 000 -11 -13 degrees QTc Int : 475 ms Supraventricular tachycardia Indeterminate axis Low voltage QRS Septal infarct , age undetermined Abnormal ECG Confirmed by BG RECINOS ([id number]), general expeditor TAMIA PAZ ([id number]) on 08/02/2018 8:13:31 PM Referred By: Confirmed By:BG RECINOS
--- NOTE | 2018-08-04 13:43 | DIS ---
DATE OF ADMISSION: 07/31/2018 DATE OF DISCHARGE: 08/01/2018 DISCHARGE DIAGNOSIS: Supraventricular tachycardia. HOSPITAL COURSE: The patient is a 78-year-old female, who presented to the hospital. She had SVT do cumented. She spontaneously converted while in the emergency room. She was observed overnight. Med ications were changed after consultation with both Cardiology as well as Electrophysiology. The patient had an unremarkable hospital course otherwise. DISCHARGE MEDICATIONS: Multaq 400 mg b.i.d., aspirin 81 mg daily, Namenda 10 mg daily, and Tylenol a s needed for pain. Metoprolol was stopped. FOLLOWUP: She will follow up with me in 1 week.
--- NOTE | 2018-08-06 16:07 | PQF ---
SAP Roll Filler Crystal Reports Winform ViewerGEORGIADES,MILAGROS WENDI LI MD [id number] [address] [place] [address] [id number] Please exercise your independent, professional judgment in responding to the clarification form. Clinical indicators are provided on the bottom of this form for your review. Thank you. Please check appropriate box(s): [ ] demand ischemia [ ] Other diagnosis [ ] Unable to determine In addition, please specify: Present on Admission (POA): [ ] Yes [ ] No [ ] Unable to determine For continuity of documentation, please document condition throughout progress notes and discharge summary. Thank You. CLINICAL INDICATORS - SIGNS / SYMPTOMS / LABS slight increased troponin levels, likely demand ischemia - Consult 07/31/2018 troponin 0.263, 0.294, 0.049 - 07/31/2018 RISK FACTORS SVT - HP 07/31/2018 TREATMENTS: Multaq 40mg po b.i.d., Metoprolol 25mg bid, (This form is maintained as a part of the permanent medical record) 2014 [employer]. All Rights Reserved Aline Andersen, CCS, MOLD CHIPPER, CASC [email or web address]
== END 2018-08-01 13:43 | disposition home or self-care (01) | DRG 309 ==
LOC: ERS 03:56 → 2SE 07:29
PROVIDERS: ADMIT Family Medicine; ATTEND Family Medicine
DX: I47.1 Supraventricular tachycardia (principal); I24.8 Other forms of acute ischemic heart disease; F03.90 Unspecified dementia, unspecified severity, without behavioral disturbance, psychotic disturbance, mood disturbance, and anxiety; R00.1 Bradycardia, unspecified
CPT/HCPCS: 36415; 71045; 80053; 82553; 83880; 84484; 85025; 93005; 96374; 96375; J0153; J2060; J2250; J3010

== ENCOUNTER 2018-08-29 16:36 | Emergency (ER) | payer MEDICARE ==
[2018-08-29 17:02] LABS: #Basophils 0.1 thou/uL (0.0-0.2); #Eosinphils 0.1 thou/uL (0.0-0.7); #Lymphocytes 1.7 thou/uL (1.20-3.40); #Monocytes 0.5 thou/uL (0.11-0.59); #Neutrophils 4.2 thou/uL (1.40-6.50); %Eosinophils 1.6 % (0.0-10.0); %Neutrophils 63.4 % (42.0-75.0); Hemoglobin 13.1 g/dL (12.0-16.0); Mean Corpuscular HGB CONC 32.5 g/dL (32.0-36.0); Mean Corpuscular Volume 95.5 fL (78.0-98.0); Mean Platelet Volume 8.3 fL (7.4-10.4); Platelet Count 202 thou/uL (130-400); RBC Distribution Width 11.6 % (11.5-14.5); Red Blood Cell (RBC) Count 4.21 mill/uL (4.20-5.40); White Blood Cell (WBC) Count 6.6 thou/uL (4.8-10.8)
[2018-08-29 17:25] LABS: ALT (SGPT) 21 U/L (8-55); AST (SGOT) 20 U/L (5-34); Albumin 4.4 g/dL (3.4-4.8); Alkaline Phosphatase 54 U/L (40-150); Anion Gap 12 mmol/L (10-20); BUN (Urea Nitrogen) 16 mg/dL (9.8-20.1); Bilirubin, Total 0.6 mg/dL (0.2-1.2); CK (CPK) 65 U/L (29-168); Calc. Creatinine Clearance 0 mL/min (70-130); Calcium 9.5 mg/dL (7.8-10.44); Carbon Dioxide 24 mmol/L (23-31); Chloride 106 mmol/L (98-107); Estimated GFR-MDRD 65; Globulin 2.6 g/dL (2.4-3.5); Glucose 101 mg/dL (83-110); Potassium 4.2 mmol/L (3.5-5.1); Sodium 138 mmol/L (136-145)
[2018-08-29 17:28] LABS: CKMB 1.3 ng/mL (0-6.6); Troponin I Less than 0.010 ng/mL (< 0.028)
--- NOTE | 2018-08-29 17:54 | RAD ---
PORTABLE UPRIGHT FRONTAL CHEST RADIOGRAPH 08/29/18 COMPARISON: 07/31/18 HISTORY: Chest pain, tachycardia, atrial fibrillation with rapid ventricular rate. FINDINGS: There is atherosclerotic calcification of the aortic arch. There is increased interstitial density wi thin the lungs bilaterally with pulmonary hyperinflation suggesting COPD in the proper clinical setti ng, unchanged. No pneumothorax, pleural fluid, focal consolidation or alveolar edema. IMPRESSION: No acute findings. POS: [facility]
== END 2018-08-29 18:10 | disposition home or self-care (01) ==
LOC: ERS 16:36
DX: R00.0 Tachycardia, unspecified (principal); F03.90 Unspecified dementia, unspecified severity, without behavioral disturbance, psychotic disturbance, mood disturbance, and anxiety; Z87.891 Personal history of nicotine dependence
CPT/HCPCS: 36415; 71045; 80053; 82553; 83690; 84484; 85025; 93005

== ENCOUNTER 2018-12-24 10:41 | Emergency (ER) | payer MEDICARE ==
[2018-12-24 11:29] LABS: #Eosinphils 0.1 thou/uL (0.0-0.7); #Lymphocytes 1.4 thou/uL (1.20-3.40); #Monocytes 0.4 thou/uL (0.11-0.59); #Neutrophils 4.6 thou/uL (1.40-6.50); %Basophils 0.8 % (0.0-1.0); %Eosinophils 1.1 % (0.0-10.0); %Lymphocytes 21.4 % (21.0-51.0); %Neutrophils 70.7 % (42.0-75.0); Hemoglobin 13.9 g/dL (12.0-16.0); Mean Corpuscular HGB CONC 31.8 g/dL (32.0-36.0); Mean Corpuscular Hemoglobin 30.2 pg (27.0-31.0); Mean Platelet Volume 8.9 fL (7.4-10.4); Platelet Count 178 thou/uL (130-400); RBC Distribution Width 12.4 % (11.5-14.5); Red Blood Cell (RBC) Count 4.62 mill/uL (4.20-5.40); White Blood Cell (WBC) Count 6.5 thou/uL (4.8-10.8)
[2018-12-24 11:40] LABS: INR-International Normal Ratio 1.1; PTT 29.3 SEC (22.9-36.1); Prothrombin Time 14.3 SEC (12.0-14.7)
[2018-12-24 12:51] LABS: Albumin 4.6 g/dL (3.4-4.8)
[2018-12-24 12:52] LABS: Chloride 107 mmol/L (98-107); Potassium 4.7 mmol/L (3.5-5.1); Sodium 141 mmol/L (136-145)
[2018-12-24 12:53] LABS: Calcium 9.6 mg/dL (7.8-10.44); Glucose 80 mg/dL (83-110)
[2018-12-24 12:54] LABS: Globulin 2.5 g/dL (2.4-3.5); Protein, Total 7.1 g/dL (6.0-8.3)
[2018-12-24 12:55] LABS: Anion Gap 18 mmol/L (10-20); Bilirubin, Total 0.8 mg/dL (0.2-1.2); Carbon Dioxide 21 mmol/L (23-31)
[2018-12-24 12:56] LABS: Alkaline Phosphatase 55 U/L (40-150)
[2018-12-24 12:57] LABS: Calc. Creatinine Clearance 0 mL/min (70-130); Estimated GFR-MDRD 66
[2018-12-24 12:58] LABS: BUN (Urea Nitrogen) 17 mg/dL (9.8-20.1)
[2018-12-24 12:59] LABS: ALT (SGPT) 31 U/L (8-55); AST (SGOT) 24 U/L (5-34)
[2018-12-24] MEDS ORDERED: ISOVUE-370 76%-LOCM 1 ML ONE (13:31)
--- NOTE | 2018-12-24 13:48 | CT ---
CT ABDOMEN AND PELVIS WITH IV CONTRAST: Date: 12/24/18 HISTORY: Rectal bleeding. Abdominal pain. FINDINGS: Lung bases are clear. A tiny cyst is present within the dome of the liver. 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 The spleen, kidneys, adrenal glands, and pancreas are unremarkable. Urinary bladder has a normal appe arance. Rectum is somewhat distended with stool. Moderate amount of stool throughout the remainder of the colon. Calcification in the arterial structures. Degenerative changes lumbar spine. IMPRESSION: 1. Fecal distention of the colon. No other rectal abnormalities are demonstrated. 2. Atherosclerosis. POS: [facility]
== END 2018-12-24 15:22 | disposition home or self-care (01) ==
LOC: ERS 10:41
DX: K92.1 Melena (principal); F03.90 Unspecified dementia, unspecified severity, without behavioral disturbance, psychotic disturbance, mood disturbance, and anxiety; Z87.891 Personal history of nicotine dependence
CPT/HCPCS: 74177; 80053; 82274; 85025; 85610; 85730; 86850; 86900; 86901; Q9966

== ENCOUNTER 2018-12-25 19:19 | Observation (INO) | payer MEDICARE ==
[2018-12-25 20:07] LABS: #Eosinphils 0.1 thou/uL (0.0-0.7); #Lymphocytes 1.8 thou/uL (1.20-3.40); #Monocytes 0.4 thou/uL (0.11-0.59); #Neutrophils 3.7 thou/uL (1.40-6.50); %Basophils 0.5 % (0.0-1.0); %Lymphocytes 30.3 % (21.0-51.0); %Monocytes 6.6 % (0.0-10.0); %Neutrophils 61.6 % (42.0-75.0); Hemoglobin 12.6 g/dL (12.0-16.0); Mean Corpuscular HGB CONC 31.9 g/dL (32.0-36.0); Mean Corpuscular Hemoglobin 30.3 pg (27.0-31.0); Mean Corpuscular Volume 95.1 fL (78.0-98.0); Platelet Count 154 thou/uL (130-400); RBC Distribution Width 12.3 % (11.5-14.5); Red Blood Cell (RBC) Count 4.16 mill/uL (4.20-5.40)
[2018-12-25] MEDS ORDERED: Aspirin Chewable 81 MG TAB ONE (20:08)
[2018-12-25 20:13] LABS: INR-International Normal Ratio 1.1; PTT 30.6 SEC (22.9-36.1); Prothrombin Time 14.7 SEC (12.0-14.7)
[2018-12-25 20:32] LABS: ALT (SGPT) 23 U/L (8-55); AST (SGOT) 18 U/L (5-34); Albumin 4.3 g/dL (3.4-4.8); Alkaline Phosphatase 55 U/L (40-150); Anion Gap 10 mmol/L (10-20); BUN (Urea Nitrogen) 19 mg/dL (9.8-20.1); Bilirubin, Total 0.7 mg/dL (0.2-1.2); Calc. Creatinine Clearance 0 mL/min (70-130); Calcium 9.4 mg/dL (7.8-10.44); Carbon Dioxide 26 mmol/L (23-31); Chloride 111 mmol/L (98-107); Estimated GFR-MDRD 73; Globulin 2.3 g/dL (2.4-3.5); Glucose 94 mg/dL (83-110); Potassium 3.7 mmol/L (3.5-5.1); Protein, Total 6.6 g/dL (6.0-8.3); Sodium 143 mmol/L (136-145)
--- NOTE | 2018-12-25 21:27 | RAD ---
RADIOGRAPH CHEST 1 VIEW: 12/25/18 at 7:43 p.m. HISTORY: 78-year-old female with palpitations, tachycardia and chest pain. FINDINGS: There is hyperinflation of the lungs, consistent with COPD. There is mild cardiomegaly. There is no evidence of air space density, pneumothorax, or pulmonary edema. The lateral costophrenic angles ar e sharp. There is no interval change since 08/29/18. IMPRESSION: 1) No acute pulmonary findings. 2) Emphysema. 3) Mild cardiomegaly without congestive heart failure. carlota tran POS: [facility]
[2018-12-25 21:58] LABS: Bilirubin Negative (Negative); Blood, Urine Negative (Negative); Clarity CLEAR (Clear); Glucose, Urine (Dipstick) Negative (Negative); Leukocyte Negative (Negative); Nitrite Negative (Negative); Protein, Urine (Dipstick) Negative (Neg-Trace); Specific Gravity, Urine 1.007 (1.002-1.036); Urobilinogen 0.2 mg/dL (0.2-1.0)
[2018-12-25 23:35] VITALS: BMI 22.4
[2018-12-26] MEDS ORDERED: Dronedarone HCl 400 MG TAB PO SCH (00:45)
[2018-12-26] MEDS ORDERED: Acetaminophen 500 MG TAB PO PRN (00:52)
[2018-12-26] MEDS ORDERED: Temazepam 15 MG CAP PO PRN (00:52)
[2018-12-26] MEDS ORDERED: Labetalol HCl 100 MG/20 ML VIAL SLOW IVP PRN (00:52)
[2018-12-26] MEDS ORDERED: Ondansetron PF 4 MG/2 ML Vial IVP PRN (00:52)
[2018-12-26] MEDS ORDERED: Ondansetron ODT 4 MG TAB PO PRN (00:52)
[2018-12-26] MEDS ORDERED: Enoxaparin Sodium 40 MG/0.4 ML SYRINGE SC SCH (01:00)
[2018-12-26] MEDS ORDERED: Metoprolol Tartrate 25 MG TAB PO SCH ×2 (01:15→09:00)
[2018-12-26 09:45] VITALS: BP 128/59; TEMP 97.5
--- NOTE | 2018-12-26 14:49 | SS ---
DATE OF ADMISSION: 12/25/2018 DATE OF DISCHARGE: 12/26/2018 HISTORY OF PRESENT ILLNESS: This is a 78-year-old white female, who has a known history of rather severe dementia, previous history of SVT, who was brought to the emergency room complaining of irregular heartbeat. She was found to be in atrial fibrillation. She was given IV Cardizem with spontaneous conversions noted. Her recently had been admitted to the hospital. It is unsure whether she will be taking her home medicine of Multaq. She has previously been admitted on multiple occasions with SVT. She has not been able to undergo cardioversion due to inability to cooperate with the procedure due to her dementia. She was now placed in observation status. Since that time, she has been doing well. ALLERGIES: SHE HAS NO KNOWN ALLERGIES. CURRENT MEDICATIONS: Memantine as well as Multaq. PAST MEDICAL HISTORY: Positive for dementia. REVIEW OF SYSTEMS: Could not be obtained. FAMILY HISTORY: Could not be. PHYSICAL EXAMINATION: VITAL SIGNS: Temperature is 97.5, pulse 52 and regular, respirations 20, O2 saturation 98%, and blood pressure 120/59. GENERAL: She is alert, no distress. HEENT: Normocephalic and atraumatic. Sclerae and conjunctivae are clear. NECK: Supple. Full range of motion. No masses. LUNGS: Clear. HEART: Reveals a regular rate and rhythm without murmurs, gallops, or rubs. ABDOMEN: Soft and nontender. Bowel sounds present and active. No hepatosplenomegaly. EXTREMITIES: No clubbing, edema, or cyanosis noted at this time. NEUROLOGIC: She is oriented x0. She is pacing the room rather phonetically at times. She is able to calm down and cooperate a small bit with the examiner. LABORATORY DATA: Her white blood count is 6.0, hemoglobin 12.6, and hematocrit 39.6. Chemistries; sodium 143, potassium 3.9, chloride 111, CO2 of 26, BUN 19, and creatinine 0.77. BNP 376. IMAGING DATA: EKG now reveals normal sinus rhythm converted from atrial fibrillation. IMPRESSION: 1. Atrial fibrillation. 2. Dementia. PLAN: I have discussed the findings with her Cardiology previously, Dr. Cade. She is just now in sinus rhythm and not a candidate for any type of further procedure. We felt like she could be discharged home safely on her Multaq 400 mg p.o. b.i.d. She will follow up with me in 2 weeks. Job ID: [id number]
== END 2018-12-26 14:58 | disposition home or self-care (01) ==
LOC: ERS 19:19 → 2SW 21:16
PROVIDERS: ADMIT Family Medicine; ATTEND Family Medicine
DX: I48.91 Unspecified atrial fibrillation (principal); F03.90 Unspecified dementia, unspecified severity, without behavioral disturbance, psychotic disturbance, mood disturbance, and anxiety; I47.1 Supraventricular tachycardia; Z79.82 Long term (current) use of aspirin; Z79.899 Other long term (current) drug therapy
CPT/HCPCS: 51701; 71045; 81003; 83880; 84484; 85610; 85730; 93005; 96372; 96374; 99285; G0378 ×2; 36415; 80053; 84443; 85025; A4353; J1650

== ENCOUNTER 2019-03-04 04:37 | Emergency (ER) | payer MEDICARE | END 2019-03-04 04:59 | disposition home or self-care (01) | LOC: ERS 04:37 | DX: R00.2 Palpitations (principal); F03.90 Unspecified dementia, unspecified severity, without behavioral disturbance, psychotic disturbance, mood disturbance, and anxiety; Z87.891 Personal history of nicotine dependence | CPT/HCPCS: 99281 ==

== ENCOUNTER 2019-03-29 11:47 | Inpatient (IN) | payer MEDICARE ==
--- NOTE | 2019-03-29 12:33 | RAD ---
EXAM: Portable chest PROVIDED CLINICAL HISTORY: Chest pain COMPARISON: 12/25/2018 FINDINGS: Cardiac and mediastinal silhouette is unchanged in appearance. Vascular calcification involves the ao rtic arch. No focal consolidation, pleural fluid or pneumothorax evident. IMPRESSION: No evidence for an acute cardiopulmonary process.
[2019-03-29 12:34] LABS: #Eosinphils 0.2 thou/uL (0.0-0.7); #Lymphocytes 1.2 thou/uL (1.20-3.40); #Monocytes 0.6 thou/uL (0.11-0.59); %Basophils 0.4 % (0.0-1.0); %Lymphocytes 15.2 % (21.0-51.0); %Monocytes 7.5 % (0.0-10.0); %Neutrophils 74.9 % (42.0-75.0); Hemoglobin 14.3 g/dL (12.0-16.0); Mean Corpuscular Hemoglobin 31.9 pg (27.0-31.0); Mean Corpuscular Volume 96.7 fL (78.0-98.0); Mean Platelet Volume 7.9 fL (7.4-10.4); Platelet Count 186 thou/uL (130-400); Red Blood Cell (RBC) Count 4.49 mill/uL (4.20-5.40)
[2019-03-29 12:54] LABS: ALT (SGPT) 43 U/L (8-55); AST (SGOT) 28 U/L (5-34); Albumin 4.4 g/dL (3.4-4.8); Alkaline Phosphatase 65 U/L (40-150); Anion Gap 9 mmol/L (10-20); BUN (Urea Nitrogen) 19 mg/dL (9.8-20.1); Bilirubin, Total 0.6 mg/dL (0.2-1.2); Calc. Creatinine Clearance 0 mL/min (70-130); Calcium 9.7 mg/dL (7.8-10.44); Carbon Dioxide 31 mmol/L (23-31); Chloride 106 mmol/L (98-107); Estimated GFR-MDRD 71; Globulin 2.4 g/dL (2.4-3.5); Glucose 84 mg/dL (83-110); Magnesium 2.1 mg/dL (1.6-2.6); Potassium 4.2 mmol/L (3.5-5.1); Protein, Total 6.8 g/dL (6.0-8.3); Sodium 142 mmol/L (136-145)
[2019-03-29] MEDS ORDERED: Acetaminophen 325 MG TAB PO PRN (14:55)
[2019-03-29 15:38] LABS: Free T4 (Free Thyroxine) 1.02 ng/dL (0.70-1.48); Thyroid Stimulating Hormone 1.1633 uIU/mL (0.35-4.94)
[2019-03-29 19:09] VITALS: BMI 20.5
[2019-03-29] MEDS: Dronedarone HCl 400 MG TAB PO SCH (19:44)
--- NOTE | 2019-03-29 21:08 | HP ---
PRIMARY CARE PHYSICIAN: Dr. Luke Gutiérrez. HISTORY OF PRESENT ILLNESS: This is a 78-year-old female patient with a history of hypertension, past history of SVT for which she was admitted in July of 2018 and again in December of 2018, who presented to the emergency department with another episode of heart racing. The patient states along with her that she has been in the usual state of health. Again, she had an admission in July of 2018 for SVT for which she did require medical cardioversion. She underwent echocardiogram as well as attempted ablation on that admission. There was no evidence of dual AV uma or accessory pathways present, but she did have inducible atrial arrhythmias. Dr. Jansen at that time recommended AV uma blocking with diltiazem or beta sara or antiarrhythmic like Multaq and she was started on Multaq at that time. She had another episode in December 2018 for a short stay in the hospital when she had another episode of atrial fibrillation on EKG. She once again cardioverted spontaneously with IV Cardizem after being admitted. Again at that time, Cardiology recommended safely keeping on Multaq. She has been on Multaq since that time and now had another episode while she was at home. Over the past 3 days, having episodes of heart racing per the up to 110 and 120, per EMS was up to 160 today. She did admit to shortness of breath, but no chest pain. She was given Cardizem by EMS and she again cardioverted back to normal sinus rhythm. She is feeling fine at this point. Denies chest pain or shortness of breath. Her heart rate remains slightly elevated in the 90s to 100s, but she is now asymptomatic. She is now being admitted for further evaluation and treatment and further Cardiology evaluation. PAST MEDICAL HISTORY: Hypertension and dementia. MEDICATIONS: 1. Multaq 400 mg b.i.d. 2. Acetaminophen p.r.n. 3. Metoprolol daily. 4. Namenda daily. 5. Albuterol p.r.n. 6. Breo inhaler p.r.n. It is uncertain why and who placed her on the Breo and the albuterol, but she has not been using that as of lately. ALLERGIES: NONE KNOWN. PAST SURGICAL HISTORY: Ablation surgery in 2018, status post hysterectomy. SOCIAL HISTORY: She lives at home with her . She is cared for primarily by him. Denies smoking. She quit over 20 years ago. Rare alcohol. REVIEW OF SYSTEMS: As per the history of present illness. GENERAL: She denies any recent fevers, chills, or recent illness. HEENT: Denies headache, visual or hearing changes. CARDIAC: As per the history of present illness, now denies chest pain. PULMONARY: Denies cough or hemoptysis. She does have on her medication list albuterol and Breo inhaler, uncertain as to when she is using that. GI: Denies nausea, vomiting, abdominal pain, melena, or hematochezia. : Denies dysuria or hematuria. NEUROLOGIC: Positive dementia. She remains high functioning, but states that she does have amnesia. MUSCULOSKELETAL: Denies joint pains. PHYSICAL EXAMINATION: VITAL SIGNS: She is afebrile. Heart rate 90 to 100, respirations 12 to 15, blood pressure is stable. GENERAL: She is awake and alert. No acute distress. Speech is clear and fluent. NECK: Supple. No masses. No thyromegaly. No bruits. HEART: Tachycardic ,but regular. LUNGS: Clear bilaterally. ABDOMEN: Soft. EXTREMITIES: No edema. 2+ peripheral pulses bilaterally. LABORATORY DATA: Sodium 142, potassium 4.2, chloride 106, CO2 of 31, BUN and creatinine 19 and 0.78 with a GFR of 71, serum glucose of 84, calcium 9.7, and magnesium 2.1. AST and ALT are normal. Cardiac enzymes are negative. D-dimer is negative. White blood cell count 8100, hemoglobin and hematocrit 14.3 and 43.4 , and platelets of 186. Chest x-ray showed no active disease. EKG per the emergency department reveals atrial fibrillation from EMS. Repeat is pending. ASSESSMENT AND PLAN: 1. This is a 78-year-old female patient with a history of dementia and recurrent episodes of supraventricular tachycardia. We will consult Cardiology for further evaluation. Check thyroid profile. I will also ensure that she is not using beta agonists such as albuterol and Breo on a regular basis. We will continue Multaq at this time. Further plan per Cardiology. 2. History of atrial tachycardia and atrial fibrillation with RVR on recent rhythm strip. With paroxysmal atrial fibrillation, she is a candidate for oral anticoagulation. Will defer to cardiology and EP to decide. 3. Dyspnea, likely secondary to demand ischemia from her atrial arrhythmia. We will continue to monitor closely on telemetry. We will repeat EKG and check echocardiogram. 4. Dementia. We will continue her Namenda. Job ID: [id number] [facility]
[2019-03-29] MEDS ORDERED: Diltiazem HCl 125 MG, Admixture Fee 1 EACH in Sodium Chloride 0.9% 100 ML IVPB SCH (23:45)
[2019-03-30] MEDS ORDERED: Aspirin 81 mg Enteric Coated Tablet PO SCH (09:00)
[2019-03-30] MEDS ORDERED: Prevnar 13-Val Conj/PF 0.5 ML SYRINGE IM ONE (09:00)
[2019-03-30] MEDS: Dronedarone HCl 400 MG TAB PO SCH (09:44)
[2019-03-30 13:37] VITALS: TEMP 98
[2019-03-30 16:23] VITALS: BP 139/63
--- NOTE | 2019-03-30 18:29 | PRG ---
DATE OF SERVICE: 03/30/2019 SUBJECTIVE: Ms. Santana has been readmitted due to rapid palpitations. She had increasing episodes of heart racing according to to 110 or 120 and even up to 160 beats per minute was noted. She was given Cardizem and eventually, she spontaneously returned to sinus rhythm. She is feeling fine at this time. Her dementia limits her history, but from the chart, it seems no additional issues were noted in the ER like no chest pains. No stroke-like symptoms. No deficits. No bleeding issues. She continues to take her Multaq and albuterol. Rest of 12-point review of system, otherwise unremarkable. Past history as above. Again, I have seen this lady repeatedly in the past. She even underwent an EP study demonstrating no dual uma pathway, but possibly atypically left atrial flutters were noted at that time. She has been placed on Multaq with moderate success, but occasional breakthroughs are still documented. She is also taking metoprolol. She has significant dementia, although still very pleasant. OBJECTIVE: VITAL SIGNS: Blood pressure is 139/63, heart rate 69, respiratory rate 16, and temperature 98 degrees Fahrenheit. GENERAL: Alert and oriented woman x1. NECK: Supple. Jugular veins not distended. CHEST: Coarse without crackles. HEART: Sounds are regular to rate and rhythm. No murmur or gallop. ABDOMEN: Benign. Bowel sounds positive. EXTREMITIES: Lower extremities without edema, clubbing, or cyanosis. Pulses are adequate. NEUROLOGIC: The patient is nonfocal. MUSCULOSKELETAL: Without joint swelling or deformity. SKIN: Without rash. DATABASE: EKG is reviewed reveals an atrial flutter, converted to sinus rhythm. LABORATORY DATA: White count is 8, hemoglobin is 14.3, and platelet count is 186. Sodium 142, potassium 4.2, BUN is 19, and creatinine 0.78. ASSESSMENT AND PLAN: Ms. Santana is a pleasant, but demented lady with recurrent atypical atrial flutters and atrial fibrillation. She is having very short episodes so far with quick conversion, but rates are relatively rapid at times. We have last seen in the past, discussed with the patient, but now I reviewed with the , who was in the room about treatment options, which could include reviewed the consideration for ablation, but in the past, she shied away from that and partially due to understanding issues. The patient has comprehension issues. We did discuss this option again. For now, they would like to continue as is. Alternative antiarrhythmics like amiodarone was also discussed. I would like to see this lady back again in the office for further discussion of these options. Job ID: [id number]
--- NOTE | 2019-03-31 01:53 | DIS ---
DATE OF ADMISSION: 03/29/2019 DATE OF DISCHARGE: 03/30/2019 SUBJECTIVE: The patient is a 78-year-old female with known history of severe dementia, history of atrial flutter. She presented to the hospital in atrial flutter. She has had multiple recommendations for ablation, but she is not able to handle this due to her dementia. She was placed on IV Cardizem, which eventually converted her. She remained in stable sinus rhythm throughout the hospitalization after conversion. There was a thought that maybe Dr. Jansen to see her again today, but her dementia became rather unruly. The patient was walking through the halls, going to other patient's rooms, became apparent she could not have further studies done. She was treated with p.o. Seroquel which has calmed her down quite a bit. Otherwise, no other medical complaints are noted. OBJECTIVE: VITAL SIGNS: Temperature 98.1, pulse 68 and regular, BP 152/73. LUNGS: Clear. HEART: Reveals no murmur. IMPRESSION: Atrial flutter, now status post cardioversion. PLAN: The patient can be discharged safely home. Discharge medications will be continued of Multaq 400 mg p.o. b.i.d. Additionally, she will be taking Namenda 10 mg daily. Her is requesting some quetiapine for use for agitation. This will be also provided. She will follow up with me in 2 weeks. Job ID: [id number]
== END 2019-03-30 17:15 | disposition home or self-care (01) | DRG 309 ==
LOC: ERS 11:47 → 2NO 18:14
PROVIDERS: ADMIT Family Medicine; ATTEND Family Medicine
DX: I48.92 Unspecified atrial flutter (principal); I24.8 Other forms of acute ischemic heart disease; F03.90 Unspecified dementia, unspecified severity, without behavioral disturbance, psychotic disturbance, mood disturbance, and anxiety; I10 Essential (primary) hypertension; Z87.891 Personal history of nicotine dependence
CPT/HCPCS: 36415; 71045; 80053; 83735; 84439; 84443; 84481; 84484; 85025; 85379; 93005; 93010; 93306; J3490

== ENCOUNTER 2019-05-19 09:39 | Inpatient (IN) | payer MEDICARE ==
[2019-05-19 10:09] LABS: #Eosinphils 0.1 thou/uL (0.0-0.7); #Lymphocytes 1.6 thou/uL (1.20-3.40); #Monocytes 0.4 thou/uL (0.11-0.59); #Neutrophils 3.1 thou/uL (1.40-6.50); %Basophils 0.8 % (0.0-1.0); %Monocytes 7.1 % (0.0-10.0); %Neutrophils 60.1 % (42.0-75.0); Hemoglobin 13.3 g/dL (12.0-16.0); Mean Corpuscular HGB CONC 32.1 g/dL (32.0-36.0); Mean Corpuscular Hemoglobin 31.1 pg (27.0-31.0); Mean Corpuscular Volume 96.6 fL (78.0-98.0); Mean Platelet Volume 7.8 fL (7.4-10.4); Platelet Count 154 thou/uL (130-400); Red Blood Cell (RBC) Count 4.29 mill/uL (4.20-5.40); White Blood Cell (WBC) Count 5.2 thou/uL (4.8-10.8)
--- NOTE | 2019-05-19 10:11 | RAD ---
PORTABLE CHEST 1 VIEW: Date: 05/19/19 Time: 0946 hours HISTORY: Chest pain. FINDINGS: Comparison made with exam of 03/29/19. The heart size is prominent, but stable. The aorta is tortuous. The lungs are well expanded without l obar consolidation, pneumothoraces, layla pulmonary edema, or pleural effusions. IMPRESSION: No acute process. POS: OFF
[2019-05-19] MEDS ORDERED: Diltiazem 125 MG in Sodium Chloride 0.9% 100 ML IVPB SCH (10:15)
[2019-05-19] MEDS ORDERED: Magnesium 2 GM/50 ML BAG (IN WATER) ONE (10:18)
[2019-05-19] MEDS ORDERED: Digoxin 0.5 MG/2 ML AMP ONE (10:18)
[2019-05-19] MEDS ORDERED: Aspirin Chewable 81 MG TAB ONE (10:18)
[2019-05-19 10:29] LABS: ALT (SGPT) 19 U/L (8-55); AST (SGOT) 14 U/L (5-34); Albumin 4.4 g/dL (3.4-4.8); Alkaline Phosphatase 67 U/L (40-150); Anion Gap 12 mmol/L (10-20); BUN (Urea Nitrogen) 13 mg/dL (9.8-20.1); Bilirubin, Total 0.8 mg/dL (0.2-1.2); CK (CPK) 41 U/L (29-168); Calc. Creatinine Clearance 0 mL/min (70-130); Calcium 9.5 mg/dL (7.8-10.44); Carbon Dioxide 26 mmol/L (23-31); Chloride 107 mmol/L (98-107); Estimated GFR-MDRD 69; Globulin 2.5 g/dL (2.4-3.5); Glucose 101 mg/dL (83-110); Lipase 48 U/L (8-78); Potassium 3.8 mmol/L (3.5-5.1); Protein, Total 6.9 g/dL (6.0-8.3); Sodium 141 mmol/L (136-145)
[2019-05-19 10:53] LABS: Bilirubin Negative (Negative); Blood, Urine Negative (Negative); Clarity CLEAR (Clear); Glucose, Urine (Dipstick) Negative (Negative); Leukocyte Negative (Negative); Nitrite Negative (Negative); Protein, Urine (Dipstick) Negative (Neg-Trace); Specific Gravity, Urine 1.006 (1.002-1.036); Urobilinogen 0.2 mg/dL (0.2-1.0); pH, Urine 7.5 (5.0-9.0)
[2019-05-19] MEDS ORDERED: Lorazepam 2 MG/ML VIAL ONE (11:29)
[2019-05-19] MEDS ORDERED: Amiodarone 150 MG/3 ML VIAL ONE (13:18)
[2019-05-19] MEDS ORDERED: Enoxaparin Sodium 60 MG/0.6 ML SYRINGE ONE (13:33)
[2019-05-19] MEDS ORDERED: Amiodarone 150 MG in Dextrose 5% in Water 100 ML IVPB SCH (13:45)
[2019-05-19] MEDS ORDERED: Amiodarone 450 MG in Dextrose 5% in Water 250 ML IVPB SCH (13:45)
[2019-05-19 13:48] LABS: Troponin I Less than 0.010 ng/mL (< 0.028)
--- NOTE | 2019-05-19 14:07 | CON ---
DATE OF CONSULTATION: REASON FOR CONSULTATION: Atrial fibrillation. HISTORY OF PRESENT ILLNESS: This is a 78-year-old woman with history of dementia. She is well known to our service. She has a history of atrial fibrillation with rapid ventricular rate and has multiple admissions for that. Her is a physician, monitors her heart rate fairly carefully. She was in her usual state of health until yesterday, when she converted atrial fibrillation and her brought her here today as her heart rate has been elevated. The patient does complain of some shortness of breath, but otherwise has no complaints. The last echocardiogram shows normal left ventricular function. PAST MEDICAL HISTORY: Significant for dementia and hypertension. MEDICATIONS: Include; 1. Multaq. 2. Acetaminophen. 3. Metoprolol. 4. Namenda. 5. Albuterol. 6. Breo inhaler. ALLERGIES: SHE HAS NO KNOWN ALLERGIES. PAST SURGICAL HISTORY: She had an ablation in the past and hysterectomy. SOCIAL HISTORY: Lives with her . Denies smoking. Rare alcohol. REVIEW OF SYSTEMS: Comprehensive review of systems is unable to obtain given her dementia. PHYSICAL EXAMINATION: GENERAL: She is comfortable, in no acute distress. VITAL SIGNS: Blood pressure is 120/80. Her heart rate is about 120 and irregular. NECK: Reveals no increased JVD. HEART: Irregularly irregular. Normal S1 and S2. LUNGS: Clear to auscultation. ABDOMEN: Soft and nontender. EXTREMITIES: No clubbing, cyanosis, or edema. DIAGNOSTIC DATA: A 12-lead ECG was done today, which was reviewed personally showing her to be in atrial fibrillation with variable ventricular rate. IMPRESSION: Atrial fibrillation with rapid ventricular rate. RECOMMENDATIONS: Ms. Santana has atrial fibrillation. She continues to have episodes despite being on Multaq. She is symptomatic with these episodes and they result in hospitalization. She has significant dementia and has declined procedures for this. I think it is reasonable to switch her to a different antiarrhythmic drugs such as amiodarone at the current time. Ultimately, a pacemaker and AV junction ablation may be something to consider in her. However, there is a certain difficulties given her significant dementia. For now, I think putting her on some amiodarone with the hopes that this will convert her back to normal rhythm may be the best option. We will continue to follow her while she is in the hospital. Job ID: [id number]
[2019-05-19 16:26] VITALS: BMI 21.7
[2019-05-19 17:16] LABS: Troponin I 0.014 ng/mL (< 0.028)
[2019-05-19] MEDS ORDERED: Ondansetron PF 4 MG/2 ML Vial IVP PRN (17:26)
[2019-05-19] MEDS ORDERED: Ondansetron ODT 4 MG TAB SL PRN (17:26)
[2019-05-19] MEDS ORDERED: Acetaminophen 325 MG TAB PO PRN (17:26)
[2019-05-19] MEDS ORDERED: Lorazepam 2 MG/ML VIAL SLOW IVP PRN (17:27)
[2019-05-19] MEDS ORDERED: Digoxin 0.5 MG/2 ML AMP SLOW IVP SCH (17:30)
--- NOTE | 2019-05-20 01:01 | HP ---
HISTORY OF PRESENT ILLNESS: The patient is a 78-year-old female with known history of dementia. She has had a previous history of recurrent SVT. She was noted by her to have an elevated heart rate. She was brought to the emergency room. She was found to be with a rapid heart rate, possibly SVT versus atrial fib. She has had multiple histories of admissions for this, some requiring cardioversion. She has been on Multaq, metoprolol. She has not been able to undergo an ablation procedure due to her dementia, which is somewhat significant at times. There is no apparent history of chest pain or shortness of breath. No nausea, vomiting, or diarrhea. Otherwise, no other medical complaints needed. She was seen and evaluated in the emergency room, given IV digoxin, was placed on diltiazem drip. This did seem to slow her heart rates some. Dr. Jansen and Dr. Cade were attempted to be contacted in the emergency room. At the time of my arrival, the patient was resting, not having any complaints. No other medical complaints are noted at this time. ALLERGIES: SHE HAS NO KNOWN ALLERGIES. CURRENT MEDICATIONS: 1. Multaq. 2. Seroquel. 3. Namenda. 4. Aspirin. PAST MEDICAL HISTORY: Positive for the above-noted SVT as well as dementia, which has been fairly severe at times. She does tend to roam in the hospital. She does function better when her is in the room with her. PAST SURGICAL HISTORY: Positive for hysterectomy. FAMILY HISTORY: Could not be obtained. PHYSICAL EXAMINATION: VITAL SIGNS: Her blood pressure is 140/65, pulse 100, temperature 97.7, O2 sats 99% on room air. GENERAL: She is alert, interactive, does not appear in any distress. HEENT: Normocephalic and atraumatic. NECK: Supple. Full range of motion. No masses. HEART: Reveals tachycardia without murmurs, gallops, or rubs. LUNGS: Clear bilaterally. ABDOMEN: Soft and nontender. Bowel sounds are present and active. No hepatosplenomegaly is noted. EXTREMITIES: No clubbing, edema, or cyanosis. LABORATORY DATA: Her hemoglobin is 13.3, hematocrit 41.4, white blood count 5.2. D-dimer is less than 0.27. Sodium 141, potassium 3.8, chloride 107, CO2 of 26, BUN 13, creatinine 0.8. Troponins x2 are normal. BNP is 263. Urinalysis is clear. IMPRESSION: Atrial fibrillation with rapid ventricular response, possible supraventricular tachycardia. PLAN: She has been admitted to the hospital on observation tele. She will have EP consult, further recommendations from them. Job ID: [id number]
[2019-05-20] MEDS: Aspirin 81 mg Enteric Coated Tablet PO SCH (09:18)
--- NOTE | 2019-05-20 10:41 | PRG ---
DATE OF SERVICE: 05/20/2019 SUBJECTIVE: She converted to sinus rhythm yesterday. She has been maintained on amiodarone drip. Her heart rate has slowed down in the mid 40s. She was sleeping, resting. She woke up. She had a restful night and did not have too much problems with dementia. OBJECTIVE: VITAL SIGNS: Temperature 97.3, pulse 47, sinus rhythm, blood pressure 147/63. LUNGS: Clear. HEART: Reveals a regular, rate, rhythm, although bradycardiac without murmur, gallops, or rubs. IMPRESSION: Atrial fibrillation/supraventricular tachycardia, converted. PLAN: Discontinue the amiodarone. We will await further input from Cardiology/EP for further treatment recommendations. The patient possibly could be a candidate for ablation. Her medication regimen is re-evaluated. She had been on Multaq previously when she came in. Job ID: [id number]
--- NOTE | 2019-05-20 13:40 | PDOC.CTH ---
Cardiology Progress Note - Subjective EP PROGRESS NOTE: 05/20/19 Seen as follow up for atrial fibrillation and medical management. Patient remains pleasantly demented this AM, which is her baseline. Denies any heart racing, palpitations, chest pain/pressure, dizziness, or passing out. - Objective Vital Signs Temp Pulse Resp BP Pulse Ox 05/20/19 11:52 98.1 F 69 15 165/67 H 95 05/20/19 08:00 98 05/20/19 07:43 97.6 F 55 L 14 176/72 H 98 05/20/19 03:59 97.3 F L 47 L 16 147/63 H 98 Weight 135 lb 05/19/19 05/20/19 05/21/19 06:59 06:59 06:59 Intake Total 720 Balance 720 - Physical Examination General/Neuro: alert & oriented x3, NAD, other: (baseline dementia) Neck: carotid US brisk, no JVD present Lungs: CTA, unlabored respirations Heart: PMI normal, RRR Abdomen: NT/ND, soft - Telemetry Telemetry Rhythm: SR - Labs Result Diagrams: 05/19/19 09:56 05/19/19 09:56 Troponin/CKMB Troponin I 0.014 ng/mL (< 0.028) 05/19/19 16:28 - Assessment/Plan 1. Atrial fibrillation -currently in SR -refractory to multaq -Bradycardic into 40s with IV amiodarone loading/gtt last night -Will start low dose amiodarone 200gm PO BID x 2 weeks then 200mg PO daily thereafter - has declined AF ablation 2. Tachycardia-bradycardia - tendency with even low dose AV uma agents 3. CHADS2- VASC: >=3 - prior anticoagulation with Xarelto with pt/ have previously declined & stopped in favor of ASA alone Will attempt to suppress AF with gentle amiodarone loading. Would keep overnight to monitor for recurrent bradycardia. no digoxin. Pt and spouse have declined ablation therapy which would also require anticoagulation being resumed. If further bradycardia issues seen with amiodarone, consider PPM and AVJ ablation if not wanting to pursue PVAI ablation and unwilling to be anticoagulated.
[2019-05-20] MEDS: Amiodarone 200 MG TAB PO SCH (20:36)
[2019-05-21] MEDS: Aspirin 81 mg Enteric Coated Tablet PO SCH (09:31)
[2019-05-21] MEDS: Amiodarone 200 MG TAB PO SCH (09:32)
[2019-05-21 11:56] VITALS: BP 159/72; TEMP 98.6
--- NOTE | 2019-05-21 14:19 | PDOC.CTH ---
Cardiology Progress Note - Subjective EP PROGRESS NOTE: 05/21/19 Seen as follow up for atrial fibrillation and medical management. Patient remains pleasantly demented this AM, which is her baseline. Denies any heart racing, palpitations, chest pain/pressure, dizziness, or passing out. No new issues overnight since starting low dose amiodarone last night - Objective Vital Signs Temp Pulse Resp BP Pulse Ox 05/21/19 11:53 98.6 F 99 15 159/72 H 96 05/21/19 08:00 96 05/21/19 07:29 97.5 F L 61 15 172/70 H 96 05/21/19 04:00 98.0 F 63 18 157/69 H 97 Weight 135 lb 05/20/19 05/21/19 05/22/19 06:59 06:59 06:59 Intake Total 720 Balance 720 - Physical Examination General/Neuro: NAD Neck: carotid US brisk, no JVD present Lungs: CTA, unlabored respirations Heart: RRR Abdomen: NT/ND, soft - Telemetry Telemetry Rhythm: SR - Labs Result Diagrams: 05/19/19 09:56 05/19/19 09:56 Troponin/CKMB Troponin I 0.014 ng/mL (< 0.028) 05/19/19 16:28 - Assessment/Plan 1. Atrial fibrillation -currently in SR -refractory to multaq -Bradycardic into 40s with IV amiodarone loading/gtt last night -Will start low dose amiodarone 200gm PO BID x 2 weeks then 200mg PO daily thereafter - has declined AF ablation 2. Tachycardia-bradycardia - tendency with even low dose AV uma agents 3. CHADS2- VASC: >=3 - prior anticoagulation with Xarelto with pt/ have previously declined & stopped in favor of ASA alone Will attempt to suppress AF with gentle amiodarone loading. Continue low dose amiodarone. no digoxin. Pt and spouse have declined ablation therapy which would also require anticoagulation being resumed. If further bradycardia issues seen with amiodarone, consider PPM and AVJ ablation if not wanting to pursue PVAI ablation and unwilling to be anticoagulated. OK for DC by EP. 64week follow up will be arranged. Rx for amiodarone in chart: Taper instructions: amiodarone 200mg PO BID x 14 days then 200mg PO daily thereafter.
--- NOTE | 2019-05-21 18:31 | PRG ---
DATE OF SERVICE: 05/21/2019 SUBJECTIVE: She is doing well. She has no medical complaints through the night. She remained in the sinus rhythm. Her heart rate has come down into the mid 60s to 70s. She is now on p.o. amiodarone. OBJECTIVE: LUNGS: Clear. HEART: Reveals no murmur. Regular rate and rhythm. IMPRESSION: Paroxysmal atrial fibrillation/supraventricular tachycardia. PLAN: From my standpoint, she can be discharged home. We will try to get EP to come by and see her after . She can follow up with me in a couple of weeks. Job ID: [id number]
--- NOTE | 2019-05-22 12:54 | EKG ---
Test Reason : Blood Pressure : / mmHG Vent. Rate : 109 BPM Atrial Rate : 109 BPM P-R Int : 000 ms QRS Dur : 092 ms QT Int : 360 ms P-R-T Axes : 071 -01 077 degrees QTc Int : 484 ms Atrial fibrillation with variable A-V block with premature ventricular or aberrantly conducted comple xes Abnormal ECG Confirmed by LAURA CASH, DAVID ([id number]), staff editor SID BENOIT ([id number] on 05/22/2019 12:54:01 PM Referred By: Confirmed By:DAVID SANCHEZ MD
--- NOTE | 2019-05-22 12:54 | EKG ---
Test Reason : REPEAT Blood Pressure : / mmHG Vent. Rate : 080 BPM Atrial Rate : 080 BPM P-R Int : 214 ms QRS Dur : 084 ms QT Int : 388 ms P-R-T Axes : 066 -02 054 degrees QTc Int : 447 ms Sinus rhythm with 1st degree A-V block with Premature atrial complexes Otherwise normal ECG #2 Confirmed by LAURA CASH, DAVID ([id number]), assistant production editor SID BENOIT ([id number]) on 05/22/2019 12:54:45 PM Referred By: Confirmed By:DAVID SANCHEZ MD
== END 2019-05-21 15:30 | disposition home or self-care (01) | DRG 310 ==
LOC: ERS 09:39 → 2NO 15:21
PROVIDERS: ADMIT Family Medicine; ATTEND Family Medicine
DX: I48.0 Paroxysmal atrial fibrillation (principal); I47.1 Supraventricular tachycardia; F03.90 Unspecified dementia, unspecified severity, without behavioral disturbance, psychotic disturbance, mood disturbance, and anxiety; Z53.29 Procedure and treatment not carried out because of patient's decision for other reasons; Z79.51 Long term (current) use of inhaled steroids; Z79.899 Other long term (current) drug therapy; Z90.710 Acquired absence of both cervix and uterus; Z87.891 Personal history of nicotine dependence
CPT/HCPCS: 36415; 71045; 80053; 81003; 82550; 83690; 83880; 84443; 84484; 85025; 85379; 93005; 94760; J0282; J1160; J1650; J2060; J3475; J3490; J7070

== ENCOUNTER 2019-05-27 16:35 | Emergency (ER) | payer MEDICARE ==
--- NOTE | 2019-05-27 18:04 | RAD ---
EXAM: Single view of the chest HISTORY: Shortness of breath COMPARISON: 05/19/2019 FINDINGS: Single view of the chest shows a normal sized cardiomediastinal silhouette. Atheroscleroti c calcifications are seen in the aorta. There is no evidence of consolidation, mass, or pleural effusion. The bones are unremarkable. IMPRESSION: No evidence of acute cardiopulmonary disease
--- NOTE | 2019-05-30 22:10 | EKG ---
Test Reason : Blood Pressure : / mmHG Vent. Rate : 066 BPM Atrial Rate : 066 BPM P-R Int : 146 ms QRS Dur : 086 ms QT Int : 430 ms P-R-T Axes : 070 -01 038 degrees QTc Int : 450 ms Normal sinus rhythm Normal ECG Confirmed by SARA SPENCER ([id number]), online content editor TAMIA PAZ ([id number]) on 05/30/2019 10:09:18 PM Referred By: Confirmed By:SARA SPENCER
== END 2019-05-27 20:00 ==
LOC: ERS 16:35
DX: Z53.21 Procedure and treatment not carried out due to patient leaving prior to being seen by health care provider (principal)
CPT/HCPCS: 71045; 93005

== ENCOUNTER 2020-10-17 11:19 | Emergency (ER) | payer MEDICARE | END 2020-10-17 13:23 | LOC: ERS 11:19 | DX: Z03.823 Encounter for observation for suspected inserted (injected) foreign body ruled out (principal); G30.9 Alzheimer's disease, unspecified; F02.80 Dementia in other diseases classified elsewhere, unspecified severity, without behavioral disturbance, psychotic disturbance, mood disturbance, and anxiety; I49.9 Cardiac arrhythmia, unspecified; Z87.891 Personal history of nicotine dependence; Z79.899 Other long term (current) drug therapy; Z79.82 Long term (current) use of aspirin | CPT/HCPCS: 99283 ==

== ENCOUNTER 2021-01-23 13:43 | Outpatient (CLI) | payer MEDICARE ==
--- NOTE | 2021-01-23 14:05 | RAD ---
Chest 2 views: 01/23/2021 COMPARISON: 05/27/2019 HISTORY: Amiodarone toxicity FINDINGS: There is atherosclerotic calcification of the aortic arch. There is enlargement of the card iac silhouette. There are degenerative changes involving the glenohumeral joints and acromioclavicular joints. Mild diffuse increased linear interstitial density. Mild pulmonary hyperinf lation. No pneumothorax or pleural fluid. No focal consolidation or alveolar edema. IMPRESSION: Enlarged cardiac silhouette with no focal consolidation or alveolar edema.
== END 2021-01-23 13:44 | disposition home or self-care (01) ==
LOC: BICRAD 13:43
PROVIDERS: ATTEND Nurse Practitioner
DX: Z91.89 Other specified personal risk factors, not elsewhere classified (principal); Z79.899 Other long term (current) drug therapy
CPT/HCPCS: 71046

== ENCOUNTER 2021-03-04 14:28 | Inpatient (IN) | payer MEDICARE ==
[2021-03-04 15:08] LABS: #Basophils 0.1 thou/uL (0.0-0.2); #Eosinphils 0.1 thou/uL (0.0-0.7); #Lymphocytes 1.6 thou/uL (1.20-3.40); #Monocytes 0.5 thou/uL (0.11-0.59); #Neutrophils 3.9 thou/uL (1.40-6.50); %Basophils 0.9 % (0.0-1.0); %Eosinophils 0.9 % (0.0-10.0); %Monocytes 7.4 % (0.0-10.0); %Neutrophils 64.8 % (42.0-75.0); Mean Corpuscular HGB CONC 32.9 g/dL (32.0-36.0); Mean Corpuscular Hemoglobin 31.9 pg (27.0-31.0); Mean Corpuscular Volume 96.8 fL (78.0-98.0); Mean Platelet Volume 9.2 fL (7.4-10.4); Platelet Count 146 thou/uL (130-400); RBC Distribution Width 12.7 % (11.5-14.5); Red Blood Cell (RBC) Count 3.78 mill/uL (4.20-5.40); White Blood Cell (WBC) Count 6.1 thou/uL (4.8-10.8)
[2021-03-04 15:28] LABS: ALT (SGPT) 45 U/L (8-55); AST (SGOT) 35 U/L (5-34); Albumin 3.6 g/dL (3.4-4.8); Alkaline Phosphatase 68 U/L (40-110); Anion Gap 13 mmol/L (10-20); BUN (Urea Nitrogen) 22 mg/dL (9.8-20.1); Bilirubin, Total 0.5 mg/dL (0.2-1.2); Calc. Creatinine Clearance 0 mL/min (70-130); Calcium 8.5 mg/dL (7.8-10.44); Carbon Dioxide 25 mmol/L (23-31); Chloride 109 mmol/L (98-107); Globulin 2.4 g/dL (2.4-3.5); Glucose 123 mg/dL (83-110); Lipase 53 U/L (8-78); Magnesium 2.2 mg/dL (1.6-2.6); Potassium 3.5 mmol/L (3.5-5.1); Sodium 143 mmol/L (136-145)
[2021-03-04] MEDS ORDERED: Acetaminophen 325 MG TAB PO PRN (16:37)
[2021-03-04] MEDS ORDERED: Lorazepam 0.5 MG TAB PO PRN (16:48)
[2021-03-04] MEDS ORDERED: Furosemide 40 MG/4 ML VIAL ONE (16:52)
[2021-03-04 16:55] LABS: Free T4 (Free Thyroxine) 0.85 ng/dL (0.70-1.48)
[2021-03-04] MEDS ORDERED: Dextrose 5% in Water 1,000 ML IV PRN (17:01)
[2021-03-04] MEDS ORDERED: HumaLOG 300 UNITS/3 ML VIAL SC PRN ×2 (17:01)
[2021-03-04] MEDS ORDERED: Lorazepam 2 MG/ML VIAL ONE (17:15)
[2021-03-04 19:46] LABS: Troponin I Less than 0.010 ng/mL (< 0.028)
[2021-03-04 23:09] LABS: Troponin I 0.013 ng/mL (< 0.028)
[2021-03-04] MEDS ORDERED: Acetaminophen 650 MG Suppository PR PRN (23:24)
[2021-03-05] MEDS: Levothyroxine Sodium 25 MCG TAB PO SCH (06:56)
[2021-03-05 07:04] LABS: #Lymphocytes 1.3 thou/uL (1.20-3.40); #Monocytes 0.5 thou/uL (0.11-0.59); #Neutrophils 7.4 thou/uL (1.40-6.50); %Lymphocytes 14.4 % (21.0-51.0); %Monocytes 5.7 % (0.0-10.0); %Neutrophils 79.8 % (42.0-75.0); Hemoglobin 12.2 g/dL (12.0-16.0); Mean Corpuscular HGB CONC 33.2 g/dL (32.0-36.0); Mean Corpuscular Hemoglobin 31.7 pg (27.0-31.0); Mean Corpuscular Volume 95.6 fL (78.0-98.0); Mean Platelet Volume 9.2 fL (7.4-10.4); Platelet Count 147 thou/uL (130-400); RBC Distribution Width 12.8 % (11.5-14.5); Red Blood Cell (RBC) Count 3.86 mill/uL (4.20-5.40); White Blood Cell (WBC) Count 9.2 thou/uL (4.8-10.8)
[2021-03-05 07:25] LABS: Anion Gap 11 mmol/L (10-20); BUN (Urea Nitrogen) 16 mg/dL (9.8-20.1); Calc. Creatinine Clearance 57 mL/min (70-130); Calcium 8.3 mg/dL (7.8-10.44); Carbon Dioxide 26 mmol/L (23-31); Chloride 108 mmol/L (98-107); Glucose 98 mg/dL (83-110); Potassium 3.3 mmol/L (3.5-5.1); Sodium 142 mmol/L (136-145)
[2021-03-05 08:09] VITALS: BMI 23.5
[2021-03-05] MEDS: Aspirin 81 mg Enteric Coated Tablet PO SCH (09:37)
[2021-03-05] MEDS: Potassium Chloride 20 MEQ TAB PO SCH ×2 (09:38→18:14)
[2021-03-05] MEDS: Lorazepam 2 MG/ML VIAL SLOW IVP PRN (11:05)
[2021-03-06 05:26] LABS: Anion Gap 8 mmol/L (10-20); BUN (Urea Nitrogen) 12 mg/dL (9.8-20.1); Calc. Creatinine Clearance 56 mL/min (70-130); Calcium 8.6 mg/dL (7.8-10.44); Carbon Dioxide 31 mmol/L (23-31); Chloride 107 mmol/L (98-107); Glucose 81 mg/dL (83-110); Potassium 4.1 mmol/L (3.5-5.1); Sodium 142 mmol/L (136-145)
[2021-03-06] MEDS: Levothyroxine Sodium 25 MCG TAB PO SCH (07:18)
[2021-03-06] MEDS: Lorazepam 2 MG/ML VIAL SLOW IVP PRN ×2 (08:40→21:36)
[2021-03-06] MEDS: Aspirin 81 mg Enteric Coated Tablet PO SCH (08:45)
[2021-03-07] MEDS: Levothyroxine Sodium 25 MCG TAB PO SCH (05:07)
[2021-03-07] MEDS: Aspirin 81 mg Enteric Coated Tablet PO SCH (10:01)
[2021-03-07] MEDS: Amlodipine 5 MG TAB PO SCH (10:01)
[2021-03-08] MEDS: Dextrose 50% Abboject 50 ML SYRINGE SLOW IVP PRN (08:04)
[2021-03-08] MEDS ORDERED: Losartan 25 MG TAB PO SCH (10:45)
[2021-03-08] MEDS ORDERED: Amiodarone 200 MG TAB PO SCH (10:45)
[2021-03-08] MEDS: Levothyroxine Sodium 25 MCG TAB PO SCH (11:20)
[2021-03-08] MEDS: Amlodipine 5 MG TAB PO SCH (11:26)
[2021-03-08] MEDS: Aspirin 81 mg Enteric Coated Tablet PO SCH (11:26)
[2021-03-08] MEDS ORDERED: cefTRIAXone\\ROCEPHIN 1 GM in Sodium Chloride 0.9% 100 ML IVPB SCH (17:00)
[2021-03-08] MEDS: Lorazepam 2 MG/ML VIAL SLOW IVP PRN (22:10)
[2021-03-09] MEDS: Levothyroxine Sodium 25 MCG TAB PO SCH (05:06)
[2021-03-09] MEDS: Dextrose 50% Abboject 50 ML SYRINGE SLOW IVP PRN (06:00)
[2021-03-09] MEDS ORDERED: Losartan 25 MG TAB PO SCH (09:00)
[2021-03-09] MEDS ORDERED: Amiodarone 200 MG TAB PO SCH ×2 (09:00)
[2021-03-09] MEDS: Aspirin 81 mg Enteric Coated Tablet PO SCH (09:30)
[2021-03-09] MEDS: Amlodipine 5 MG TAB PO SCH (09:31)
[2021-03-09 11:30] VITALS: BP 134/61; TEMP 98.1
== END 2021-03-09 13:50 | disposition home or self-care (01) | DRG 309 ==
LOC: ERS 14:28 → 2NO 16:30 → OBSVTOIN 03-05 16:44
PROVIDERS: ADMIT Family Medicine; ATTEND Internal Medicine
DX: R00.1 Bradycardia, unspecified (principal); F02.81 Dementia in other diseases classified elsewhere, unspecified severity, with behavioral disturbance; G93.49 Other encephalopathy; Z66 Do not resuscitate; Z20.822 Contact with and (suspected) exposure to COVID-19; G20 Parkinson's disease; G30.9 Alzheimer's disease, unspecified; E11.9 Type 2 diabetes mellitus without complications; E55.9 Vitamin D deficiency, unspecified; F41.9 Anxiety disorder, unspecified; I48.0 Paroxysmal atrial fibrillation; E78.00 Pure hypercholesterolemia, unspecified; R94.31 Abnormal electrocardiogram [ECG] [EKG]; I47.2 Ventricular tachycardia; E03.9 Hypothyroidism, unspecified; E87.6 Hypokalemia; D64.9 Anemia, unspecified; I50.9 Heart failure, unspecified; Z87.891 Personal history of nicotine dependence; Z90.710 Acquired absence of both cervix and uterus; Z79.82 Long term (current) use of aspirin; Z79.899 Other long term (current) drug therapy; I11.0 Hypertensive heart disease with heart failure; Z78.1 Physical restraint status
CPT/HCPCS: 36415; 36416; 71045; 80048; 80053; 83690; 83735; 83880; 84439; 84443; 84481; 84484; 85025; 87077; 87086; 87186; 93005; 96374; 96375; G0378; J0696; J1940; J2060; J3490

== ENCOUNTER 2021-03-11 09:37 | Observation (INO) | payer MEDICARE, OTHER ==
[2021-03-11 10:31] LABS: #Lymphocytes 0.9 thou/uL (1.20-3.40); #Monocytes 0.4 thou/uL (0.11-0.59); #Neutrophils 4.4 thou/uL (1.40-6.50); %Basophils 0.3 % (0.0-1.0); %Eosinophils 0.8 % (0.0-10.0); %Monocytes 7.5 % (0.0-10.0); %Neutrophils 76.4 % (42.0-75.0); Hemoglobin 14.6 g/dL (12.0-16.0); Mean Corpuscular HGB CONC 31.6 g/dL (32.0-36.0); Mean Corpuscular Hemoglobin 30.8 pg (27.0-31.0); Mean Corpuscular Volume 97.3 fL (78.0-98.0); Mean Platelet Volume 8.8 fL (7.4-10.4); Platelet Count 174 thou/uL (130-400); RBC Distribution Width 12.9 % (11.5-14.5); Red Blood Cell (RBC) Count 4.74 mill/uL (4.20-5.40); White Blood Cell (WBC) Count 5.8 thou/uL (4.8-10.8)
[2021-03-11 10:53] LABS: ALT (SGPT) 23 U/L (8-55); AST (SGOT) 24 U/L (5-34); Albumin 3.8 g/dL (3.4-4.8); Alkaline Phosphatase 64 U/L (40-110); Anion Gap 13 mmol/L (10-20); BUN (Urea Nitrogen) 19 mg/dL (9.8-20.1); Bilirubin, Total 0.5 mg/dL (0.2-1.2); Calc. Creatinine Clearance 0 mL/min (70-130); Calcium 8.7 mg/dL (7.8-10.44); Carbon Dioxide 27 mmol/L (23-31); Chloride 107 mmol/L (98-107); Globulin 2.6 g/dL (2.4-3.5); Glucose 67 mg/dL (83-110); Potassium 3.8 mmol/L (3.5-5.1); Protein, Total 6.4 g/dL (5.8-8.1); Sodium 143 mmol/L (136-145)
[2021-03-11 13:55] LABS: Troponin I Less than 0.010 ng/mL (< 0.028)
[2021-03-11] MEDS ORDERED: Lorazepam 0.5 MG TAB PO PRN (15:34)
[2021-03-11 17:02] LABS: Troponin I 0.025 ng/mL (< 0.028)
[2021-03-11] MEDS ORDERED: Lorazepam 2 MG/ML VIAL ONE (17:06)
[2021-03-11 17:14] VITALS: BMI 19.2
[2021-03-11] MEDS ORDERED: Lorazepam 2 MG/ML VIAL SLOW IVP SCH (17:15)
[2021-03-12 00:31] LABS: SARS-CoV-2 PCR by NAA Not Detected (NotDetected)
[2021-03-12 05:08] LABS: #Eosinphils 0.1 thou/uL (0.0-0.7); #Lymphocytes 1.7 thou/uL (1.20-3.40); #Monocytes 0.6 thou/uL (0.11-0.59); #Neutrophils 3.2 thou/uL (1.40-6.50); %Basophils 0.7 % (0.0-1.0); %Eosinophils 1.8 % (0.0-10.0); %Lymphocytes 29.8 % (21.0-51.0); %Monocytes 10.2 % (0.0-10.0); %Neutrophils 57.5 % (42.0-75.0); Hemoglobin 14.4 g/dL (12.0-16.0); Mean Corpuscular HGB CONC 32.1 g/dL (32.0-36.0); Mean Corpuscular Hemoglobin 31.2 pg (27.0-31.0); Mean Corpuscular Volume 97.2 fL (78.0-98.0); Mean Platelet Volume 9.3 fL (7.4-10.4); Platelet Count 151 thou/uL (130-400); RBC Distribution Width 12.9 % (11.5-14.5); Red Blood Cell (RBC) Count 4.62 mill/uL (4.20-5.40); White Blood Cell (WBC) Count 5.6 thou/uL (4.8-10.8)
[2021-03-12 05:30] LABS: Anion Gap 15 mmol/L (10-20); BUN (Urea Nitrogen) 13 mg/dL (9.8-20.1); Calc. Creatinine Clearance 55 mL/min (70-130); Calcium 8.8 mg/dL (7.8-10.44); Carbon Dioxide 22 mmol/L (23-31); Chloride 108 mmol/L (98-107); Glucose 78 mg/dL (83-110); Potassium 3.6 mmol/L (3.5-5.1); Sodium 141 mmol/L (136-145)
[2021-03-12] MEDS ORDERED: Levothyroxine Sodium 25 MCG TAB PO SCH (06:00)
[2021-03-12] MEDS ORDERED: Amiodarone 200 MG TAB PO SCH (09:00)
[2021-03-12] MEDS ORDERED: Aspirin 81 mg Enteric Coated Tablet PO SCH (09:00)
[2021-03-12 15:37] VITALS: BP 147/99; TEMP 98.3
== END 2021-03-12 16:31 ==
LOC: ERS 09:37 → 2NO 12:15
PROVIDERS: ADMIT Internal Medicine; ATTEND Internal Medicine
DX: E16.2 Hypoglycemia, unspecified (principal); R41.82 Altered mental status, unspecified; I49.9 Cardiac arrhythmia, unspecified; G20 Parkinson's disease; G30.9 Alzheimer's disease, unspecified; I48.19 Other persistent atrial fibrillation; E03.9 Hypothyroidism, unspecified; E11.9 Type 2 diabetes mellitus without complications; D64.9 Anemia, unspecified; N17.9 Acute kidney failure, unspecified; F02.80 Dementia in other diseases classified elsewhere, unspecified severity, without behavioral disturbance, psychotic disturbance, mood disturbance, and anxiety; E78.00 Pure hypercholesterolemia, unspecified; Z79.899 Other long term (current) drug therapy; Z20.822 Contact with and (suspected) exposure to COVID-19
CPT/HCPCS: 70450; 71045; 80048; 82140; 82962 ×2; 83880; 84484 ×2; 85025; 87086; 93005; 94640; 94760; 96374; 96375; G0378 ×3; U0003; U0005; 36415; 36416; 51701; 80053; 84443; 87635; 93010; J2060; J7620

== ENCOUNTER 2023-12-28 14:41 | Emergency (ER) | payer OTHER, MEDICARE ==
[2023-12-28 15:11] LABS: #Eosinphils 0.1 thou/uL (0.0-0.7); #Monocytes 0.3 thou/uL (0.11-0.59); #Neutrophils 3.2 thou/uL (1.40-6.50); %Basophils 0.7 % (0.0-1.0); %Lymphocytes 18.7 % (21.0-51.0); %Monocytes 7.2 % (0.0-10.0); %Neutrophils 71.2 % (42.0-75.0); Hematocrit 34.7 % (36.0-47.0); Mean Corpuscular HGB CONC 31.7 g/dL (32.0-36.0); Mean Corpuscular Hemoglobin 32.1 pg (27.0-31.0); Mean Corpuscular Volume 101.2 fl (78.0-98.0); Mean Platelet Volume 10.8 fL (7.4-10.4); Platelet Count 190 10x3/uL (130-400); RBC Distribution Width 13.6 % (11.5-14.5); Red Blood Cell (RBC) Count 3.43 mill/uL (4.20-5.40); White Blood Cell (WBC) Count 4.4 10x3/uL (4.8-10.8)
[2023-12-28 15:22] LABS: INR-International Normal Ratio 1.1; PTT 32.2 sec (22.9-36.1)
[2023-12-28] MEDS ORDERED: Iopamidol-370 76% 500 ML MDV (1 ML CHARGE) ONE (15:36)
[2023-12-28 15:37] LABS: Troponin I Less than 0.010 ng/mL (< 0.028)
[2023-12-28 15:40] LABS: ALT (SGPT) 14 U/L (8-55); AST (SGOT) 19 U/L (5-34); Albumin 3.6 g/dL (3.4-4.8); Alkaline Phosphatase 72 U/L (40-110); Anion Gap 10 mmol/L (10-20); BUN (Urea Nitrogen) 26 mg/dL (9.8-20.1); Bilirubin, Total 0.6 mg/dL (0.2-1.2); Calc. Creatinine Clearance 0 mL/min (70-130); Calcium 8.7 mg/dL (7.8-10.44); Carbon Dioxide 27 mmol/L (23-31); Chloride 109 mmol/L (98-107); Estimated GFR 57; Globulin 2.7 g/dL (2.4-3.5); Glucose 97 mg/dL (83-110); Magnesium 2.2 mg/dL (1.6-2.6); Potassium 4.5 mmol/L (3.5-5.1); Protein, Total 6.3 g/dL (5.8-8.1); Sodium 141 mmol/L (136-145)
[2023-12-28] MEDS ORDERED: Lidocaine 1% PF 5 ML VIAL ONE (16:30)
[2023-12-28] MEDS ORDERED: Boostrix 0.5 ML (Tdap) VIAL (>/=7 yrs of age) ONE (16:30)
[2023-12-28] MEDS ORDERED: Lidocaine/Transparent Dressing 1 EACH KIT ONE (16:30)
== END 2023-12-29 00:04 | disposition home or self-care (01) ==
LOC: ERS 14:41
DX: S01.112A Laceration without foreign body of left eyelid and periocular area, initial encounter (principal); E11.9 Type 2 diabetes mellitus without complications; W20.8XXA Other cause of strike by thrown, projected or falling object, initial encounter; Z23 Encounter for immunization; Z87.891 Personal history of nicotine dependence
CPT/HCPCS: 12013; 70450; 70486; 71045; 71260; 72125; 72170; 74177; 80053; 83735; 83880; 84484; 85025; 85610; 85730; 90471; 90715; 93005; G0390; Q9967